=== PATIENT | male | born 1955 | race Caucasian/White ===

== ENCOUNTER 2023-09-18 15:15 | Emergency (ER) | payer MEDICARE, OTHER, SELFPAY ==
[2023-09-18 15:18] VITALS: BP 147/95
[2023-09-18 15:21] VITALS: BMI 32.3
[2023-09-18 15:44] LABS: % Basophils 0.3 % (0-2); % Eosinophils 2.1 % (0-6); % Immature Granulocytes 0.9 % (0-0.5); % Lymphocytes 18.6 % (20.5-51.1); % Neutrophils 66.1 % (42.2-75.2); Absolute Eosinophils 0.1 10^3/uL (0-0.7); Absolute Immature Granulocytes 0.1 10^3/uL (0-0.05); Absolute Lymphocytes 1.1 10^3/uL (1.2-3.4); Absolute Monocytes 0.7 10^3/uL (0.1-0.6); Absolute Neutrophils 3.8 10^3/uL (1.4-6.5); Hematocrit 50.1 % (39.0-52.0); Hemoglobin 16.7 g/dL (13.0-18.0); Mean Corp Hgb Conc. 33.3 g/dL (33.0-37.0); Mean Corpuscular Hgb 29.6 pg (27.0-31.0); Mean Corpuscular Volume 88.8 fL (80.0-94.0); Mean Platelet Volume 9.7 fL (7.4-10.4); Nucleated Red Blood Cells % 0 % (-); Platelet Count 164 10^3/uL (130-400); Red Blood Cell Count 5.64 10^6/uL (4.70-6.10); Red Cell Dist. Width 14.2 % (11.5-14.5); White Blood Cell Count 5.7 10^3/uL (4.8-10.8)
[2023-09-18 15:49] LABS: ALT (SGPT) 29 U/L (0-50); AST (SGOT) 29 U/L (17-59); Albumin 4.4 g/dl (3.5-5.0); Alkaline Phosphatase 60 U/L (38-126); Blood Urea Nitrogen 13 mg/dl (9-20); Carbon Dioxide 28 mmol/L (22-30); Chloride 102 mmol/L (98-107); Estimated Creatinine Clearance 94 ml/min; Glucose 119 mg/dl (70-99); Total Bilirubin 0.8 mg/dl (0.2-1.3); Total Protein 7.3 g/dl (6.3-8.2); eGFR > 60.00
[2023-09-18 15:59] LABS: Potassium 4.3 mmol/L (3.5-5.1); Sodium 136 mmol/L (135-145)
[2023-09-18 16:00] LABS: Troponin I < 0.012 ng/ml
--- NOTE | 2023-09-18 16:51 | ED.GENMED ---
History of Present Illness
<Ashley Banks PA-C - Last Filed: 09/22/23 09:03>
General
Chief Complaint: Chest Pain
Source: patient
Exam Limitations: none
Time Seen by Provider: 09/18/23 16:51
Nursing documentation reviewed up to this point in time: agreed with
Travel History
Have you had any contact with someone who has COVID-19?: No
Do you have any symptoms of coronavirus? Fever > 100 degrees, chills, cough, shortness of breath, sore throat, loss of taste or smell, muscle aches, or headache?: No
History of Present Illness
History of Present Illness:
67-year-old male with past medical history of A-fib, GERD, IBS, ventricular tachycardia, presenting to the emergency department today with left-sided chest pain since 1 pm today. Patient states that he has had this pain for the last 2 years
intermittently. Patient states that this feels like his usual chest pains on the past, however patient states that these episodes in the past have usually lasted for a few minutes but this time the pain has not gone away. Follows with
David with [facility], he has been seen [facility] in the past. Patient has called Dr. Hernandez in the past for this pain, and he has not been concerned about it considering has not happened with exertion. Patient called his
cardiology office today, in light of his persistent pain, was advised to report to emergency department. Patient denies palpitations, shortness of breath, recent long distance travel, personal history of blood clots. Patient does note chronic pain
in his bilateral calfs. Patient denies any dizziness, lightheadedness, syncopal episodes. Patient states that he has had a coronary artery catheterization at [facility] in 2020, which was normal. Patient does have a follow-up appointment next
week with Dr. Hernandez.
Review of Systems
<Ashley Banks PA-C - Last Filed: 09/22/23 09:03>
Review of Systems
All Other Systems: ROS reviewed and negative except as documented in HPI and ROS
Phy Exam
<Ashley Banks PA-C - Last Filed: 09/22/23 09:03>
Physical Exam
Physical Exam:
Vitals: Vital signs are stable
General: Patient is well-appearing in no acute distress
Skin: warm and dry, no rashes or lesions
Head: atraumatic, normocephalic
Peripheral Vascular: Some tenderness to palpation in the calves bilaterally. No lower extremity edema, no erythema. 2+ dorsalis pedis and posterior tibial pulses bilaterally.
Cardiac: Regular rate and rhythm, no murmurs, rubs, gallops. No tenderness to palpation over the external chest wall.
Pulm: Normal respiratory effort, normal respiratory rate, no wheezes, rales, rhonchi heard on exam, breath sounds equal
Abdomen: No abdominal tenderness
Neuro: AAOx3, CN II-XII intact.
Scores
<Ashley Banks PA-C - Last Filed: 09/22/23 09:03>
Heart Score for Chest Pain Patients
STEMI patient?: No
History: Slightly or Non-Suspicious
ECG: Normal
Age: >/= 65 years
Risk Factors: >/= 3 Risk Factors or History of CAD
Troponin: </= Normal Limit
Heart Score for Chest Pain Patients: 4
Heart Score Risk: 20.3% MACE over next 6 weeks
Course
<Ashley Banks PA-C - Last Filed: 09/22/23 09:03>
Orders/Labs/Results
Orders:
Orders
09/18/23 15:16
EKG [Electrocardiogram (*1)] Urgent
Reason for Study: Chest Pain
EKG- Treatment ONCE
09/18/23 15:25
Complete Blood Count/With Diff Urgent
Comprehensive Metabolic Panel Urgent
Troponin I Urgent
09/18/23 18:41
Electrocardiogram (*1) Urgent
Reason for Study: Chest Pain
EKG- Treatment ONCE
CR Chest - 2 Views Urgent
Comment:
Reason For Exam: left sided chest pain
09/18/23 19:25
D-Dimer Urgent
Troponin I Urgent
09/18/23 20:08
CT Chest Pe Study Urgent
Comment:
Reason For Exam: cp
Abnormal Lab Results
09/18/23 09/18/23
15:25 19:25
Abs Immat Gran (auto) 0.1 H 10^3/uL
(0-0.05)
Absolute Lymphs (auto) 1.1 L 10^3/uL
(1.2-3.4)
Absolute Monos (auto) 0.7 H 10^3/uL
(0.1-0.6)
Immature Gran % 0.9 H %
(0-0.5)
Lymphocytes % 18.6 L %
(20.5-51.1)
Monocytes % 12.0 H %
(1.7-9.3)
D-Dimer 0.87 H ug/mlFEU
(0.00-0.50)
Glucose 119 H mg/dl
(70-99)
09/18/23 15:25
09/18/23 15:25
Vital Signs
Initial and Last Documented VS:
Initial Vital Signs
Temp Pulse Resp BP Pulse Ox
98.2 F 69 16 147/95 96
09/18/23 15:18 09/18/23 15:18 09/18/23 15:18 09/18/23 15:18 09/18/23 15:18
Last Documented Vital Signs
Temp Pulse Resp BP Pulse Ox
98.2 F 76 20 118/75 98
09/18/23 15:18 09/18/23 23:30 09/18/23 23:30 09/18/23 23:30 09/18/23 23:30
<Amanuel Barahona, DO - Last Filed: 09/18/23 23:16>
Orders/Labs/Results
Orders:
Orders
09/18/23 15:16
EKG [Electrocardiogram (*1)] Urgent
Reason for Study: Chest Pain
EKG- Treatment ONCE
09/18/23 15:25
Complete Blood Count/With Diff Urgent
Comprehensive Metabolic Panel Urgent
Troponin I Urgent
09/18/23 18:41
Electrocardiogram (*1) Urgent
Reason for Study: Chest Pain
EKG- Treatment ONCE
CR Chest - 2 Views Urgent
Comment:
Reason For Exam: left sided chest pain
09/18/23 19:25
D-Dimer Urgent
Troponin I Urgent
09/18/23 20:08
CT Chest Pe Study Urgent
Comment:
Reason For Exam: cp
Abnormal Lab Results
09/18/23 09/18/23
15:25 19:25
Abs Immat Gran (auto) 0.1 H 10^3/uL
(0-0.05)
Absolute Lymphs (auto) 1.1 L 10^3/uL
(1.2-3.4)
Absolute Monos (auto) 0.7 H 10^3/uL
(0.1-0.6)
Immature Gran % 0.9 H %
(0-0.5)
Lymphocytes % 18.6 L %
(20.5-51.1)
Monocytes % 12.0 H %
(1.7-9.3)
D-Dimer 0.87 H ug/mlFEU
(0.00-0.50)
Glucose 119 H mg/dl
(70-99)
09/18/23 15:25
09/18/23 15:25
Vital Signs
Initial and Last Documented VS:
Initial Vital Signs
Temp Pulse Resp BP Pulse Ox
98.2 F 69 16 147/95 96
09/18/23 15:18 09/18/23 15:18 09/18/23 15:18 09/18/23 15:18 09/18/23 15:18
Last Documented Vital Signs
Temp Pulse Resp BP Pulse Ox
98.2 F 76 20 118/75 98
09/18/23 15:18 09/18/23 23:30 09/18/23 23:30 09/18/23 23:30 09/18/23 23:30
<Ashley Banks PA-C - Last Filed: 09/22/23 09:03>
MDM/Problems Addressed
Differential Diagnosis Includes:
Differentials include ACS, PE, pneumonia, costochondritis, pulmonary contusion, musculoskeletal sprain/strain
MDM/Problems Addressed:
Chest pain
Chronic conditions affecting care: HTN, Arrhythmia (has hx of afib, no longer takes thinner) and Other (diverticulitis, GERD, IBS, sleep apnea)
Acute Exacerbation and/or Progression of Chronic Illness: HTN
<Ashley Banks PA-C - Last Filed: 09/22/23 09:03>
*Pulse Oximetry
Patient hypoxic: no
*Critical Care Note
Total Time (30-74mins, 75-104mins- exclusive of procedures): Not Applicable
Data Reviewed
Review of Other/Old Records Reveals: Records (Reviewed history and physical from 09/25/2022, reviewed H&P from 04/16/2022) and Discharge Summary (Discharge summaries in [facility] to review.)
Source: patient and records
Prescriptions/Medications Considered But Not Given:
Consider medication for pain control, however patient states he is comfortable at this time
<DO Michelle Mccann Last Filed: 09/18/23 23:16>
*EKG
Interpreted by ED Provider?: Yes
Rate: normal
Rhythm: sinus
[place]: left axis deviation
QRS Pattern: normal QRS
Ischemia: no ischemia
*Stereo Plotter Operator Interpretation
Rate: normal
Interpretation: normal
Rhythm: sinus
<Ashley Banks PA-C - Last Filed: 09/22/23 09:03>
Patient Management
Escalation/DeEscalation of care consider admission/obs:
67-year-old male with past medical history of A-fib, GERD, IBS, ventricular tachycardia, presenting to the emergency department today with left-sided chest pain since 1 pm today. Patient states that he has had this pain for the last 2 years
intermittently. Patient states that this feels like his usual chest pains on the past, however patient states that these episodes in the past have usually lasted for a few minutes but this time the pain has not gone away. Emergency Department, his
EKG demonstrates normal sinus rhythm with no ischemic changes. His CBC and CMP unremarkable, initial troponin and 3-hour troponin repeat negative. Repeat EKG remains in normal sinus. Patient D-dimer is elevated, will proceed with CT scan.
ED Attending Note
<DAMION Calzada Last Filed: 09/22/23 09:03>
-
Portions of this chart may have been created with voice recognition software.� Occasional wrong word or��sound alike� substitutions may have occurred due to the inherent limitations of voice recognition software.
<DO Michelle Mccann Last Filed: 09/18/23 23:16>
ED Attending Note
Patient seen and examined by attending physician: Yes
I performed the substantive portion of visit, reviewed & personally made and approve the management plan that is documented in note by myself or MEÑO.: Yes
ED Attending Note:
Agree with note above. 67-year-old male with a history of tachyarrhythmias who presents with atypical left chest pain that has been ongoing for some time. He has spoken to his animal anatomist about it. He reportedly had a normal cardiac
catheterization about 3 years ago. EKG unchanged. Repeat troponin negative. Low index of suspicion for any ischemia given previous cath and normal troponins. Family history of clots and patient was concerned. D-dimer positive but CT negative.
Okay for discharge and outpatient cardiology follow-up
Discharge Plan
Departure
Patient Disposition: Home (Routine Discharge)
Date of Disposition: 09/18/23
Time of Disposition: 23:09
Patient with high blood pressure during this ER visit?: No
Discharge Problem:
ayptical chest pain
Instructions: Chest Pain DCA Follow Up
Prescriptions:
No Action
methotrexate sodium 2.5 MG tablet
7.5 mg PO .BID ON FRIDAY
tamsulosin 0.4 MG capsule
0.4 mg PO QPM
dextroamphetamine-amphetamine [Adderall XR] 20 MG capsule,extended release 24hr
20 mg PO DAILY
ropinirole 0.5 MG tablet
1.5 mg PO QPM
metoprolol tartrate 50 MG tablet
50 mg PO BID
gabapentin 300 MG capsule
300 mg PO Q6PM
folic acid 1 MG tablet
1 mg PO QPM
finasteride 5 MG tablet
5 mg PO DAILY
tadalafil [Cialis] 5 MG tablet
5 mg PO QPM
tadalafil [Cialis] 20 MG tablet
20 mg PO PRN PRN (Reason: ED)
omeprazole-sodium bicarbonate [Zegerid] 1 EACH capsule
1 cap PO BID
Iron 1 TAB Tab
1 tab PO DAILY
dextroamphetamine-amphetamine 10 MG tablet
10 mg PO DAILY@1400
Xarelto 20 MG tablet
20 mg PO QPM Qty: 0 0RF
Patient Comments:
Pt normally takes in eveing but took in AM yesterday for today's procedure
Rx Instructions:
Take your dose at 6pm tonight
melatonin 3 mg Tablet
3 mg PO HS
gabapentin 300 mg Capsule
300 mg PO HS
duloxetine 60 mg Capsule,Delayed Release(Dr/Ec)
60 mg PO DAILY
Referrals:
Russell Martel, [Family Provider] -
Activity Restrictions/Additional Instructions:
Please see your doctor or animal anatomist in the next 3 to 5 days for follow-up and reevaluation. Return immediately for worsening symptoms, shortness of breath, fevers or any other concerns.
Interventions
Interventions:
*Risk Screen - Suicide Last Done: 09/18/23 15:18
*General Assessment Last Done: 09/18/23 19:05
*Neglect/Abuse Screening Last Done: 09/18/23 15:18
ED- Fall Risk Assessment Last Done: 09/18/23 19:05
*ED COVID-19 Vaccine History Last Done: 09/18/23 15:18
*Nursing Disposition Last Done: 09/18/23 23:30
ED- Cardiac Assessment Last Done: 09/18/23 19:05
Discharge Date and Time
Discharge Date/Time: 09/18/23 23:30
[2023-09-18 19:05] VITALS: BP 123/46
[2023-09-18 19:57] LABS: D-Dimer 0.87 ug/mlFEU (0.00-0.50)
[2023-09-18 20:11] LABS: Troponin I < 0.012 ng/ml
[2023-09-18 20:45] VITALS: BP 116/79
[2023-09-18 21:58] VITALS: BP 118/75
[2023-09-18 23:30] VITALS: BP 118/75
== END 2023-09-18 23:30 | disposition home or self-care (01) ==
LOC: EMR 15:15
PROVIDERS: Emergency Medicine; Physician Assistant; EMERGENCY PHYSICIAN Emergency Medicine; FAMILY PHYSICIAN Family Medicine
DX: R07.89 Other chest pain (principal); I48.91 Unspecified atrial fibrillation; K21.9 Gastro-esophageal reflux disease without esophagitis
CPT/HCPCS: 99285; 71046; 71275; 80053; 84484; 85025; 85379; 93005; Q9967

== ENCOUNTER → 2023-10-09 11:01 | Outpatient (REF) | payer MEDICARE, OTHER, SELFPAY | LOC: DHCBC/DCA 11:01 | PROVIDERS: ATTENDING PHYSICIAN Internal Medicine Cardiovascular Disease; FAMILY PHYSICIAN Family Medicine | DX: I48.91 Unspecified atrial fibrillation (principal); R94.31 Abnormal electrocardiogram [ECG] [EKG] | CPT/HCPCS: 78452; 93017; A9500; J2785 ==

== ENCOUNTER → 2024-02-16 13:45 | Outpatient (REF) | payer MEDICARE, OTHER, SELFPAY | LOC: MRI 13:45 | PROVIDERS: ATTENDING PHYSICIAN Internal Medicine Rheumatology; FAMILY PHYSICIAN Family Medicine | DX: M17.0 Bilateral primary osteoarthritis of knee (principal); M45.0 Ankylosing spondylitis of multiple sites in spine; M54.2 Cervicalgia | CPT/HCPCS: 72141; 73221 ==

== ENCOUNTER 2024-03-02 01:30 | Inpatient (IN) | payer MEDICARE, OTHER, SELFPAY ==
[2024-03-01 22:58] VITALS: BP 116/88; BMI 35.0
[2024-03-01 23:00] VITALS: BP 129/83
[2024-03-01 23:22] LABS: % Basophils 0.3 % (0-2); % Eosinophils 1.1 % (0-6); % Immature Granulocytes 1.1 % (0-0.5); % Lymphocytes 8.4 % (20.5-51.1); % Monocytes 9.4 % (1.7-9.3); % Neutrophils 79.7 % (42.2-75.2); Absolute Eosinophils 0.1 10^3/uL (0-0.7); Absolute Immature Granulocytes 0.1 10^3/uL (0-0.05); Absolute Lymphocytes 0.6 10^3/uL (1.2-3.4); Absolute Monocytes 0.7 10^3/uL (0.1-0.6); Hematocrit 44.3 % (39.0-52.0); Hemoglobin 14.8 g/dL (13.0-18.0); Mean Corp Hgb Conc. 33.4 g/dL (33.0-37.0); Mean Corpuscular Hgb 27.9 pg (27.0-31.0); Mean Corpuscular Volume 83.6 fL (80.0-94.0); Mean Platelet Volume 10.3 fL (7.4-10.4); Nucleated Red Blood Cells % 0 % (-); Platelet Count 112 10^3/uL (130-400); Red Cell Dist. Width 18.1 % (11.5-14.5); White Blood Cell Count 7.5 10^3/uL (4.8-10.8)
[2024-03-01 23:28] LABS: ALT (SGPT) 28 U/L (0-50); AST (SGOT) 28 U/L (17-59); Albumin 3.8 g/dl (3.5-5.0); Alkaline Phosphatase 42 U/L (38-126); Blood Urea Nitrogen 14 mg/dl (9-20); Calcium 8.7 mg/dl (8.4-10.2); Carbon Dioxide 23 mmol/L (22-30); Chloride 104 mmol/L (98-107); Estimated Creatinine Clearance 107 ml/min; Glucose 232 mg/dl (70-99); Potassium 4.3 mmol/L (3.5-5.1); Sodium 139 mmol/L (135-145); Total Bilirubin 0.5 mg/dl (0.2-1.3); Total Protein 6.3 g/dl (6.3-8.2); eGFR > 60.00
--- NOTE | 2024-03-01 23:30 | ED.GENMED ---
History of Present Illness
General
Chief Complaint: AICD Problem
Source: patient and spouse
Exam Limitations: none
Time Seen by Provider: 03/01/24 22:58
Nursing documentation reviewed up to this point in time: agreed with
History of Present Illness
History of Present Illness:
68-year-old male history of tachyarrhythmia status post ablation x [address] Hernandez also history of tachycardia after sex status post cardioversion at [facility] has an AICD
Had a vodka drink this evening currently having sexual activity, was sitting on the side of the bed grabbed his chest fell over, shocked x 2 EMS was called
He has a Greenext device by report denies any preceding chest pain or shortness of breath he did feel very tired does not usually get that type of aerobic activity
Past History
Past History
ED Past Medical History: Arrthythmia
ED Past Surgical History: Cardiac
Social History
Tobacco: Non-smoker
Alcohol: Occasional
Drug: None
Personal:
Living: with family
Review of Systems
Review of Systems
All Other Systems: Not applicable
Cardiac: Reports other (AICD shock); Denies chest pain
ABD/GI: Reports no symptoms
: Reports no symptoms
Phy Exam
Physical Exam
Physical Exam:
Physical Exam
General: no apparent distress, not acutely ill
Neck: No jaundice
Heart: s1/s2 regular rate and rhythm, no murmur. equal radial pulses.
Lungs: no acute respiratory distress. clear bilaterally
Abdomen: Nontender
Neuro: alert and oriented. no focal neurological deficits
Skin: no rash
Psychiatric: well kept. interactive and cooperative
Extremities: no edema.
Course
Orders/Labs/Results
Orders:
Orders
03/01/24 22:55
Electrocardiogram (*1) Urgent
Reason for Study: Other
Other Reason for Exam: def. went off
03/01/24 22:56
EKG- Treatment ONCE
03/01/24 23:03
CMP [Comprehensive Metabolic Panel] Urgent
Complete Blood Count/With Diff Urgent
Magnesium Urgent
Comment: ADD ON
03/01/24 23:30
Add On- LAB Urgent
Tests Added?: magnesium
03/01/24 23:33
Interrogate Pacemaker- Treatment ONCE
Abnormal Lab Results
03/01/24
23:03
RDW 18.1 H %
(11.5-14.5)
Plt Count 112 L 10^3/uL
(130-400)
Abs Immat Gran (auto) 0.1 H 10^3/uL
(0-0.05)
Absolute Lymphs (auto) 0.6 L 10^3/uL
(1.2-3.4)
Absolute Monos (auto) 0.7 H 10^3/uL
(0.1-0.6)
Immature Gran % 1.1 H %
(0-0.5)
Neutrophils % 79.7 H %
(42.2-75.2)
Lymphocytes % 8.4 L %
(20.5-51.1)
Monocytes % 9.4 H %
(1.7-9.3)
Glucose 232 H mg/dl
(70-99)
03/01/24 23:03
03/01/24 23:03
Vital Signs
Initial and Last Documented VS:
Initial Vital Signs
Pulse Resp BP Pulse Ox
99 18 116/88 93
03/01/24 22:58 03/01/24 22:58 03/01/24 22:58 03/01/24 22:58
Last Documented Vital Signs
Temp Pulse Resp BP Pulse Ox
97.9 F 89 19 136/77 93
03/01/24 23:15 03/02/24 00:00 03/02/24 00:00 03/02/24 00:00 03/02/24 00:00
MDM/Problems Addressed
Differential Diagnosis Includes:
Arrhythmia, AICD shock, VT VF
MDM/Problems Addressed:
Fall AICD shock
Chronic conditions affecting care: Arrhythmia
Acute Exacerbation and/or Progression of Chronic Illness: Arrhythmia
*Pulse Oximetry
Patient hypoxic: no
*EKG
Interpreted by ED Provider?: Yes
Interpretation: abnormal
Comparison EKG: no comparison EKG present
Heart Rate: 78
Rate: normal
Ischemia: non-specific ST changes
*Water And Gas Helper Interpretation
Rate: normal
Interpretation: normal
Heart Rate: 78
*Critical Care Note
Total Time (30-74mins, 75-104mins- exclusive of procedures): Not Applicable
Update Note
Update Note:
Update interrogation reviewed 2 shocks for VF
ED Attending Note
-
Portions of this chart may have been created with voice recognition software.� Occasional wrong word or��sound alike� substitutions may have occurred due to the inherent limitations of voice recognition software.
Discharge Plan
Departure
Patient Disposition: Admit
Date of Disposition: 03/02/24
Time of Disposition: 00:09
Admit to: IVU
Presentation/result/management discussed w/ accepting MD/DO: Hospitalist
Patient with high blood pressure during this ER visit?: No
Condition: Fair
Discharge Problem:
AICD shock
Prescriptions:
No Action
methotrexate sodium 2.5 MG tablet
7.5 mg PO .BID ON FRIDAY
tamsulosin 0.4 MG capsule
0.4 mg PO QPM
dextroamphetamine-amphetamine [Adderall XR] 20 MG capsule,extended release 24hr
20 mg PO DAILY
ropinirole 0.5 MG tablet
1.5 mg PO QPM
metoprolol tartrate 50 MG tablet
50 mg PO BID
gabapentin 300 MG capsule
300 mg PO Q6PM
folic acid 1 MG tablet
1 mg PO QPM
finasteride 5 MG tablet
5 mg PO DAILY
tadalafil [Cialis] 5 MG tablet
5 mg PO QPM
tadalafil [Cialis] 20 MG tablet
20 mg PO PRN PRN (Reason: ED)
omeprazole-sodium bicarbonate [Zegerid] 1 EACH capsule
1 cap PO BID
Iron 1 TAB Tab
1 tab PO DAILY
dextroamphetamine-amphetamine 10 MG tablet
10 mg PO DAILY@1400
Xarelto 20 MG tablet
20 mg PO QPM Qty: 0 0RF
Patient Comments:
Pt normally takes in eveing but took in AM yesterday for today's procedure
Rx Instructions:
Take your dose at 6pm tonight
melatonin 3 mg Tablet
3 mg PO HS
gabapentin 300 mg Capsule
300 mg PO HS
duloxetine 60 mg Capsule,Delayed Release(Dr/Ec)
60 mg PO DAILY
Referrals:
Russell Martel DO [Family Provider] -
Interventions
Interventions:
*Risk Screen - Suicide Last Done: 03/01/24 22:58
*General Assessment Last Done: 03/01/24 22:58
*Neglect/Abuse Screening Last Done: 03/01/24 22:58
ED- Fall Risk Assessment Last Done: 03/01/24 23:03
ED- Cardiac Assessment Last Done: 03/01/24 23:03
Discharge Date and Time
Print Language: SERBIAN
[2024-03-02] VITALS (24 sets, daily range): BP systolic 102–141; BP diastolic 67–109; PULSE 81–87; BMI 34.4
--- NOTE | 2024-03-02 00:04 | EDRN ---
Sleeping with at bedside, call braun in reach, will continue to monitor
[2024-03-02] MEDS: TYLENOL 650 MG PO (00:27)
--- NOTE | 2024-03-02 01:00 | HPS.HSE ---
Family Physician
-
Family Physician: Russell Martel
Chief Complaint
-
Status post AICD defibrillation
History of Present Illness
This is a 68-year-old male with past medical history that significant for atrial fibrillation, V. tach status post AICD, history of PVI ablation, CAD and coronary vessels, NATALIE on CPAP, hypertension and obesity presenting to the emergency department
after experiencing 2 shocks from his AICD.
Patient reports generally being in usual state of health. He was medically dosed prior to come to the ED when he had experienced shock. Therefore show he did not feel but he was not over to the floor. He felt a second shock thereafter. Prior to
the shock during mucoid told the patient felt palpitations and also felt mild amount of chest pain and thereafter he experienced shock. The patient said the symptoms of palpitations and any chest pain resolves immediately after the shock. He
reports moderate activity recently but denies any exertional dyspnea, exertional angina, orthopnea or PND. He denies any lower extremity swelling. Denies recent episodes of palpitations lightheadedness or dizziness. His last pulmonary cath was 3
years ago and did not require intervention at that time.
On arrival in the emergency department he was afebrile, hemodynamically stable and in no acute distress. ECG shows normal sinus rhythm at a rate of [address] or T wave changes. Chemistries were within normal limits. CBC was also
within normal limits.
Medical History
Past Medical History
Past Medical History: Reports HTN and MO
Additional Past Medical History:
paroxysmal atrial fibrillation
VT s/p ablation
S/P AICD
NATALIE on CPAP
Past Surgical History: Reports None
Social History
Tobacco: Non-smoker
Alcohol: None
Drug: None
Personal:
Living: With Family
Employment: Employed
Family History
Family History: Not pertinent
Allergies / Home Medications
Allergies reflects when Allergies were last updated in [employer].
Home Medications with original date entered in [employer]
Allergy/Medication List:
Allergies
Allergy/AdvReac Type Severity Reaction Status Date / Time
shrimp Allergy Unknown facial Verified 03/01/24 23:02
swelling
clindamycin Allergy Facial Verified 03/01/24 23:02
Swelling
dog dander Allergy runny nose Verified 03/01/24 23:02
modafinil [From Provigil] Allergy Pharmacy Verified 03/01/24 23:02
to Review
Home Medications
dextroamphetamine-amphetamine ER 20 mg 24hr capsule,extend release (Adderall XR) 20 mg PO DAILY 12/03/21
gabapentin 300 mg capsule 300 mg PO BID 12/03/21
metoprolol tartrate 50 mg tablet 50 mg PO BID 12/03/21
omeprazole 40 mg-sodium bicarbonate 1.1 gram capsule (Zegerid) 1 cap PO BID 12/03/21
ropinirole 0.5 mg tablet 2 mg PO QPM 12/03/21
tadalafil 20 mg tablet (Cialis) 20 mg PO PRN PRN ED 12/03/21
tadalafil 5 mg tablet (Cialis) 5 mg PO QPM 12/03/21
tamsulosin 0.4 mg capsule 0.4 mg PO QPM 12/03/21
dextroamphetamine-amphetamine 10 mg tablet 20 mg PO DAILY@1400 12/11/21
melatonin 3 mg tablet 5 mg PO HS 04/11/22
aspirin 81 mg tablet,delayed release (Pauly Low Dose Aspirin) 81 mg PO DAILY 03/02/24
bupropion HCl 150 mg tablet,12 hr sustained-release (Wellbutrin SR) 150 mg PO DAILY 03/02/24
prednisone 5 mg tablet 5 mg PO DAILY 03/02/24
sertraline 100 mg tablet (Zoloft) 100 mg PO DAILY 03/02/24
sulfasalazine 500 mg tablet 1 g PO BID 03/02/24
Review of Systems
-
History Source: Patient
Constitutional: Reports No Symptoms
EENT: Reports No Symptoms
Respiratory: Reports No Symptoms
Cardiac: Reports Chest Pain and Palpitations
Abdomen/GI: Reports No Symptoms
: Reports No Symptoms
Musculoskeletal: Reports No Symptoms
Skin: Reports No Symptoms
Neurological: Reports No Symptoms
Endocrine: Reports No Symptoms
Hematologic/Lymphatic: Reports No Symptoms
Psych: Reports No Symptoms
Physical Exam
Vital Signs
Vital Signs
Temp Pulse Resp BP Pulse Ox
97.9 F 89 19 136/77 94
03/01/24 23:15 03/02/24 00:00 03/02/24 00:00 03/02/24 00:00 03/02/24 00:22
Physical Exam
General: Well Developed, Well Nourished, No Apparent Distress and Comfortable
HEENT: NormoCephalic, Anicteric, Moist mucous membranes and Atraumatic
Respiratory: Clear
Cardiac: S1/S2 and Regular Rhythm
Breast: Deferred by me
GI: Soft, Non Tender, Non Distended and Normal Bowel Sounds
Rectal: Deferred by Provider
Genito-urinary: Deferred by me
Musculoskeletal: No Clubbing, No Cyanosis and No Edema
Skin: Warm and Dry
Neuro: AO x 3
Hematologic/Lymphatic: No Lymphadenopathy
Psych: Calm
Laboratory Results
-
03/01/24 23:03
03/01/24 23:03
Laboratory Results
Total Bilirubin 0.5 mg/dl (0.2-1.3) 03/01/24 23:03
AST 28 U/L (17-59) 03/01/24 23:03
ALT 28 U/L (0-50) 03/01/24 23:03
Alkaline Phosphatase 42 U/L (38-126) 03/01/24 23:03
Data Reviewed
-
Medical Tests (Nuc Med, Echo, EKG etc): Image Personally Visualized and interpreted and Report Reviewed by me
Lab Data: Labs Reviewed by me
Old Records: Reviewed
Impression/Plan
-
IMPRESSION:
Patient with history of atrial fibrillation, V. tach status post defibrillation in the past, now status post ablation and AICD, CAD status post MO, hypertension, obesity, NATALIE on CPAP presenting to the emergency department status post AICD firing.
PLAN:
1. AICD Firing - Patient experienced 2 shocks. This was AICD firing up. Interrogation of device showed defibrillation starting 2.5 seconds after sensing V-fib and a second defibrillator 1 second liter. This terminated the V-fib. Prior to
experiencing the shock patient noted palpitations and mild chest pain which are now completely resolved. Current ECG showed normal sinus rhythm. His labs were unremarkable. Troponin will have been uninformative at this time. He is chest
pain-free and in no acute distress. Has history of V. tach in the past requiring defibrillation. Denies recent symptoms of angina. However the question is whether he had ischemia in the setting of coital activity resulting in the episode of
ventricular arrhythmia.
- admit to telemetry
- hold off on troponin for now
- check echo in am
- further ischemic testing per cardiology
- continue aspirin daily
- continue metoprolol.
2. AFIB - paroxysmal afib. No afib on ECG or telemetry. Not anticoagulated.
- continue rate control with metoprolol
3. NATALIE -
- CPAP HS
Patient with unspecified inflammatory arthritis on prednisone and sulfasalzine.
Continuing sertraline and Adderall
DVT PPX - lovenox SQ
Code status - Full code
--- NOTE | 2024-03-02 01:43 | EDRN ---
Patient ambulatory to the bathroom and back in bed resting comfortably
--- NOTE | 2024-03-02 03:44 | PTCARENOTE ---
Received pt from ED RN. Pt walked from the stretcher to our bed. Pt is AAOx3. NSR on the monitor. Received pt on 2L NC, RT placed pt on CPAP, lungs clear. BRPx1. CHG bath provided. Pt is laying in bed with call braun in reach.
[2024-03-02 04:43] LABS: Hepatitis C Antibody Negative (Negative)
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
--- NOTE | 2024-03-02 08:13 | W.PN.HOSP.TC ---
Today's Communication/Plan
-
NPO for ischemic eval
appreciate cardiology
Assessment / Plan
Assessment / Plan
IMPRESSION:
Patient with history of atrial fibrillation, V. tach status post defibrillation in the past, now status post ablation and AICD, CAD status post UT, hypertension, obesity, NATALIE on CPAP presenting to the emergency department status post AICD firing.
PLAN:
1. AICD Firing - Patient experienced 2 shocks. This was AICD firing up. Interrogation of device showed defibrillation starting 2.5 seconds after sensing V-fib and a second defibrillator 1 second liter. This terminated the V-fib. Prior to
experiencing the shock patient noted palpitations and mild chest pain which are now completely resolved. Current ECG showed normal sinus rhythm. His labs were unremarkable. He is chest pain-free and in no acute distress. Has history of V. tach
in the past requiring defibrillation. Denies recent symptoms of angina. However the question is whether he had ischemia in the setting of coital activity resulting in the episode of ventricular arrhythmia.
- admit to telemetry
- check echo in am
- further ischemic testing per cardiology, made NPO for possible cath
- continue aspirin daily
- continue metoprolol.
2. AFIB - paroxysmal afib. No afib on ECG or telemetry. Not anticoagulated.
- continue rate control with metoprolol
3. NATALIE -
- CPAP HS
Patient with unspecified inflammatory arthritis on prednisone and sulfasalzine.
Continuing sertraline and Adderall
DVT PPX - lovenox SQ
Code status - Full code
Anticipated Discharge: 24 - 48 hours
Subjective/Interval History
-
Date of Service: March 02, 2024
no chest pain or arrhythmia overnight
Objective Data
-
Labs:
Laboratory Results
03/01/24
23:03
WBC 7.5
Hgb 14.8
Hct 44.3
Plt Count 112 L
Sodium 139
Potassium 4.3
Chloride 104
Carbon Dioxide 23
BUN 14
Creatinine 0.8
Glucose 232 H
Calcium 8.7
Total Bilirubin 0.5
AST 28
ALT 28
Alkaline Phosphatase 42
Vital Signs:
Vital Signs
Temp Pulse Resp BP Pulse Ox
97.9 F 71 15 125/75 94
03/01/24 23:15 03/02/24 06:00 03/02/24 06:00 03/02/24 06:00 03/02/24 06:00
I&O
03/01/24 03/02/24 03/03/24
06:59 06:59 06:59
Intake Total 410 / 410
Balance 410 / 410
Review of Systems
-
History Source: Patient
All other systems: Reviewed and negative
Physical Exam
-
General: No Apparent Distress
HEENT: PERRLA
Respiratory: Clear to Auscultation; Negative Wheezes
Cardiac: Regular Rhythm and S1/S2
GI: Soft and Nontender
Musculoskeletal: No Edema
Skin: Warm and Dry; Negative Rash
Neuro: AO x 3
Psych: Calm
Data Reviewed
-
Diagnostic Radiology: Report Reviewed by me
Labs: Labs Reviewed by me
--- NOTE | 2024-03-02 09:30 | PTCARENOTE ---
Plan discussed with multiple members of care team, pt will go for cardiac cath this am. Report given to Michael in labor arbitrator hearing office. Per original orders, pt is for IVU, call placed to unit to confirm, bellows charger assembler will review staffing and assign bed. Pt updated,
anxious...emotional support provided, meds given- see AUG.
[2024-03-02] MEDS: NEURONTIN 300 MG PO ×2 (09:44→19:49)
[2024-03-02] MEDS: AZULFIDINE 1000 MG PO ×2 (09:44→19:49)
[2024-03-02] MEDS: DELTASONE 5 MG PO (09:44)
[2024-03-02] MEDS: ASPIR LOW (ENTERIC COATED) 81 MG PO (09:44)
[2024-03-02] MEDS: WELLBUTRIN SR (12 hour sustained release) 150 MG PO (09:44)
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
[2024-03-02] MEDS: ZOLOFT 100 MG PO (09:45)
[2024-03-02] MEDS: LOPRESSOR 50 MG PO (09:45)
[2024-03-02 10:47] LABS: Troponin I 0.147 ng/ml
--- NOTE | 2024-03-02 11:06 | PTCARENOTE ---
Received the patient from the quality assurance/r&d lab technician in his bed. The patient is aaox3, vss, 94% on RA, NSR obn the monitor. He has no complaints of pain or discomfort. His right R-band is in place. I instructed him on his activity restrictions. His call braun is
within reach.
[2024-03-02] MEDS: NSS 1000 IV (11:54)
--- NOTE | 2024-03-02 14:38 | W.PN.UPDATE ---
Update Note
Progress Note Update
pt had 24 beat run NSVT on telemetry, was asymptomatic.
Cardiac catheterization today showed luminal irregularities. Elevated troponin this a.m. of 0.147, likely due to non-ischemic myocardial injury.
Metoprolol tartrate was increased to 75 mg BID earlier today.
We are arranging for inpatient cardiac MRI and awaiting echo ordered for today.
In further discussion with patient today, last week he had been prescribed fluconazole 100 mg daily as well as nystatin swish and spit for thrush. Took fluconazole on 02/23, 02/24, 02/25, and 03/01.
Also, patient reports being on daily Cialis 5 mg and tamsulosin for issues since his treatment for anal cancer. In addition, he uses PRN Viagra and Cialis for erectile dysfunction. He had used Viagra on 02/27, Cialis on 02/28, and Viagra on 03/01.
Case was reviewed and discussed with Dr Clinton Hernandez, pt's EP. Plan to start Dofetilide tomorrow for management of ventricular arrhythmias. Starting tomorrow due to recent use of Fluconazole. Pt was previously on Dofetilide 250 mcg bid for
atrial fibrillation. Was stopped after a PVI for afib in 12/19. At that time, it was unclear why he was on the lower dose of Dofetilide as it had been started during care at [facility]. We plan to start Dofetilide 250 mcg bid in the morning.
--- NOTE | 2024-03-02 14:50 | CM ---
Chart reviewed. Patient is independent of ADLS, lives with his in a [address], 5 [address], O DME. Plan is for the patient to return home. CM to follow
--- NOTE | 2024-03-02 15:18 | PTCARENOTE ---
Monitor showing a 24 beat run of VT. The patient is sitting up in bed. He is asymptomatic. TEST FIXTURE DESIGNER's notified.
[2024-03-02] MEDS: PROTONIX 40 MG PO ×2 (16:00→22:08)
[2024-03-02] MEDS: ADDERALL PO (17:18)
[2024-03-02] MEDS: REQUIP 2 MG PO (17:54)
[2024-03-02] MEDS: FLOMAX 0.4 MG PO (17:54)
[2024-03-02] MEDS: LOVENOX 40 MG SC (17:54)
[2024-03-02] MEDS: LOPRESSOR 75 MG PO (19:50)
[2024-03-02] MEDS: MELATONIN 5 MG PO (22:08)
[2024-03-03] VITALS (8 sets, daily range): BP systolic 118–135; BP diastolic 72–102; PULSE 80; BMI 33.8
[2024-03-03 04:57] LABS: Hematocrit 46.1 % (39.0-52.0); Mean Corp Hgb Conc. 32.5 g/dL (33.0-37.0); Mean Corpuscular Hgb 27.6 pg (27.0-31.0); Mean Corpuscular Volume 84.7 fL (80.0-94.0); Mean Platelet Volume 9.9 fL (7.4-10.4); Platelet Count 114 10^3/uL (130-400); Red Blood Cell Count 5.44 10^6/uL (4.70-6.10); Red Cell Dist. Width 18.6 % (11.5-14.5); White Blood Cell Count 6.9 10^3/uL (4.8-10.8)
[2024-03-03 05:20] LABS: Blood Urea Nitrogen 12 mg/dl (9-20); Calcium 8.8 mg/dl (8.4-10.2); Carbon Dioxide 28 mmol/L (22-30); Chloride 105 mmol/L (98-107); Estimated Creatinine Clearance 93 ml/min; Glucose 98 mg/dl (70-99); Magnesium 2.2 mg/dl (1.6-2.3); Potassium 4.5 mmol/L (3.5-5.1); Sodium 138 mmol/L (135-145); eGFR > 60.00
--- NOTE | 2024-03-03 05:57 | PTCARENOTE ---
Tele remains SR w/ occasional PVCs, and Apaced. HR in the 60-70s. Denies any pain or discomfort. Ambulates self in room. Can make needs known, call braun within reach
--- NOTE | 2024-03-03 07:37 | W.PN.CARDCBS ---
Addendum entered and electronically signed by Scar Keyes MD 03/03/24 09:57:
I saw and examined the patient.
The Sap Architect's note was reviewed and I agree with the note.
Comment:
GEN: No distress, awake, Ox3
HEENT: supple, anicteric, mmm
LUNGS: CTA, no wheezes/rales
CV: Reg, S1/S2, 1/6 syst LSB, no gallop
ABD: soft, BS+, NT/ND
EXT: No edema
NEURO: Gross non-focal
SKIN: No rash
Plan:
Overall doing well. No further significant VTE. Continue Tikosyn 250 mcg twice daily
Cardiac MRI today. Cardiac cath with nonobstructive CAD.
Continue metoprolol.
If has further VT would consider ablation.
Addendum entered and electronically signed by Argelia Fernandez PA-C 03/03/24 08:53:
patient on requip 2mg QPM for restless leg syndrome. patient inquired with nursing about dose now so he can complete MRI. consider one time dose now
Original Note:
Today's Communication / Plan
-
for cardiac MRI today
tikosyn 250mcg Q12H
Impression / Plan
-
PCP:
Primary hazardous waste material technician: Clinton Hernandez MD
Impression:
Ventricular tachycardia status post ICD shock x 2
Atrial fibrillation status post ablation 12/19 (dofetilide discontinued at this time)
Atrial tachycardia status post EP study 04/20
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
VT 10/18- seen at [facility] and had CV
DC ICD ([employer]) 10/02/20
Myocardial infarction 10/18
Nonobstructive coronary artery disease
Vasovagal syncope
Sleep apnea
GERD
Diverticular disease
Anal cancer status post chemo and radiation
Bilateral shoulder surgery 2009
Cardiac contusion approximately 30 years ago
Cardiac catheterization on 09/29/2020 ([facility]) showed nonobstructive coronary artery disease and an ejection fraction of 40 to 45%.
Echocardiogram on 09/29/2020 ([facility]) showed an EF of 55% with no wall motion abnormalities.
Lexiscan Cardiolite stress test on 10/09/23 showing a fixed defects in the basal inferolateral, basal inferior, mid inferior lateral, and mid inferior segment of the apex consistent with soft tissue attenuation which improved with prone imaging. EF
was 57%.
ECHO 03/02/24: EF 55 to 60%, mild concentric LVH, stage II diastolic dysfunction, mild MAC, trace MR, mild TR, PAP 33 mmHg
Plan:
-Presented with VT/VF status post shock x 2, which occurred in the setting of physical exertion (sexual intercourse). He has history of VT resulting in ICD placement in 2020. No prior shocks.
-Cardiac catheterization 03/02 with nonobstructive coronary disease. trop 0.147, nonischemic myocardial injury likely due to shocks
-Echo with results as above, EF preserved
-for cardiac MRI today
-will plan to start dofetilide today. had been on 250mcg Q12H in past for afib s/p PVI, will resume at this dose.
-no further VT noted overnight on review of tele. one brief vpaced episode.
-continue lopressor 75mg BID
-could consider for OP VT ablation
-d/w nursing. d/w hospitalist
Progress Note - Crime Scene Analyst
Subjective
Date of Service: March 03, 2024
no issues overnight. patient states he slept well
Objective
Labs:
03/03/24 04:38
03/03/24 04:38
Labs
Hgb 15.0 g/dL (13.0-18.0) 03/03/24 04:38
Hct 46.1 % (39.0-52.0) 03/03/24 04:38
Plt Count 114 10^3/uL (130-400) L 03/03/24 04:38
Sodium 138 mmol/L (135-145) 03/03/24 04:38
Potassium 4.5 mmol/L (3.5-5.1) 03/03/24 04:38
BUN 12 mg/dl (9-20) 03/03/24 04:38
Creatinine 0.9 mg/dL (0.7-1.3) 03/03/24 04:38
Glucose 98 mg/dl (70-99) 03/03/24 04:38
Troponins
03/02/24 03/02/24
10:01 10:09
Troponin I Cancelled 0.147 H*
Vital Signs and I&O:
Vital Signs
Temp Pulse Resp BP Pulse Ox
97.3 F 66 20 135/85 97
03/03/24 06:51 03/03/24 06:54 03/03/24 06:51 03/03/24 06:54 03/03/24 06:54
Vital Signs
Temp Pulse Resp BP Pulse Ox
97.3 F 66 20 135/85 97
03/03/24 06:51 03/03/24 06:54 03/03/24 06:51 03/03/24 06:54 03/03/24 06:54
Intake & Output
02/29/24 03/01/24 03/02/24 03/03/24
07:59 07:59 07:59 07:59
Intake Total 410 / 410 1314 / 1314
Balance 410 / 410 1314 / 1314
Physical Exam
Physical Exam
GEN: No distress, awake, alert, oriented x3
HEENT: supple, anicteric, mmm, eomi
LUNGS: CTA B/L, no wheezes/rales
CV: Reg, S1/S2, no murmur
ABD: soft, BS+, NT/ND
EXT: No cyanosis, clubbing, edema
NEURO: Gross non-focal
SKIN: Warm, pink, dry. No rash
[2024-03-03] MEDS: ASPIR LOW (ENTERIC COATED) 81 MG PO (07:49)
[2024-03-03] MEDS: WELLBUTRIN SR (12 hour sustained release) 150 MG PO (07:49)
[2024-03-03] MEDS: PROTONIX 40 MG PO (07:49)
[2024-03-03] MEDS: AZULFIDINE 1000 MG PO ×2 (07:50→19:40)
[2024-03-03] MEDS: LOPRESSOR 75 MG PO ×2 (07:50→19:40)
[2024-03-03] MEDS: NEURONTIN 300 MG PO ×2 (07:50→19:39)
[2024-03-03] MEDS: DELTASONE 5 MG PO (07:51)
[2024-03-03] MEDS: ZOLOFT 100 MG PO (07:51)
[2024-03-03] MEDS: FLUSH (NSS) 1 FLUSH IV (07:51)
--- NOTE | 2024-03-03 08:05 | W.PN.HOSP.TC ---
Today's Communication/Plan
-
see plan
Assessment / Plan
Assessment / Plan
IMPRESSION:
Patient with history of atrial fibrillation, V. tach status post defibrillation in the past, now status post ablation and AICD, CAD status post NM, hypertension, obesity, NATALIE on CPAP presenting to the emergency department status post AICD firing.
Cardiac Cath 03/02/24
CONCLUSIONS
1. No obstructive coronary artery disease.
2. 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
3. LVEDP is 15 mmHg
TTE 03/02/24
CONCLUSIONS
Normal left ventricular chamber size. Normal left ventricular systolic
function. Normal regional wall motion. Mild concentric left ventricular
hypertrophy. Left ventricular ejection fraction is 55-60% by volumetric
assessment. Stage II diastolic dysfunction suggestive of abnormal relaxation
and increased filling pressures.
Normal right ventricular size and function. ICD wire seen in right ventricle.
Mitral valve opens normally. Mild mitral annular calcification. Trace mitral
regurgitation.
Trileaflet aortic valve. The aortic valve is structurally and functionally
normal.
Tricuspid valve opens normally. Mild tricuspid regurgitation. Estimated
pulmonary artery pressure of 33 mmHg assuming a right atrial pressure of 3
mmHg.
PLAN:
1. AICD Firing
-Interrogation of device showed defibrillation starting 2.5 seconds after sensing V-fib and a second defibrillator 1 second liter. This terminated the V-fib.
-s/p cardiac cath on 03/02 without obstructive coronary disease
-TTE with preserved EF, mild LVH and diastolic dysfunction
-plan is for cardiac MRI today
-continue ESTATE PLANNER Metoprolol, dose increased
-plan is to start Dofetilide today
2. AFIB - paroxysmal afib. No afib on ECG or telemetry. Not anticoagulated.
- continue rate control with metoprolol
3. NATALIE -
- CPAP HS
Patient with unspecified inflammatory arthritis on prednisone and sulfasalzine.
Continuing sertraline and Adderall
DVT PPX - lovenox SQ
Code status - Full code
Anticipated Discharge: > 48 hours
Subjective/Interval History
-
Date of Service: March 03, 2024
feeling well
no chest pain or shortness of breath
Objective Data
-
Labs:
Laboratory Results
03/03/24
04:38
WBC 6.9
Hgb 15.0
Hct 46.1
Plt Count 114 L
Sodium 138
Potassium 4.5
Chloride 105
Carbon Dioxide 28
BUN 12
Creatinine 0.9
Glucose 98
Calcium 8.8
Vital Signs:
Vital Signs
Temp Pulse Resp BP Pulse Ox
97.3 F 66 20 135/85 97
03/03/24 06:51 03/03/24 06:54 03/03/24 06:51 03/03/24 06:54 03/03/24 06:54
I&O
03/02/24 03/03/24 03/04/24
06:59 06:59 06:59
Intake Total 410 / 410 1314 / 1314
Balance 410 / 410 1314 / 1314
Review of Systems
-
History Source: Patient
All other systems: Reviewed and negative
Physical Exam
-
General: No Apparent Distress
HEENT: PERRLA
Respiratory: Clear to Auscultation; Negative Wheezes
Cardiac: Regular Rhythm and S1/S2
GI: Soft and Nontender
Musculoskeletal: No Edema
Skin: Warm and Dry; Negative Rash
Neuro: AO x 3
Psych: Calm
Data Reviewed
-
Diagnostic Radiology: Report Reviewed by me
Labs: Labs Reviewed by me
--- NOTE | 2024-03-03 08:56 | W.CARD.TIKOS ---
Initiate Tikosyn
-
I verify that the patient has not taken any verapamil (Isoptin/Calan), ketoconazole (Nizoral), cimetidine (Tagamet), trimethoprim (Trimpex), trimethoprim/sulfamethoxazole (Bactrim), megesterol (Megace), prochlorperazine (Compazine),
hydrochlorothiazide (HCTZ), dolutegravir (Tivicay) or any Class I or Class III anti-arrhythmic within the last three days
AND
I verify that the patient has not taken amiodarone within the last THREE months, or that the patient's amiodarone plasma concentration is <0.3 mcg/mL.
Creatinine 0.9 mg/dL (0.7-1.3) 03/03/24 04:38
Estimated Creat Clear 93 ml/min 03/03/24 04:38
Does patient have a Ventricular Conduction Abnormality: No
I have assessed the baseline QTc interval (using QT for heart rate less than 60 bpm) and deemed the patient is appropriate for Dofetilide therapy. I understand that Tikosyn is contraindicated if the QTc is >440msec (500msec in patients with
ventricular conduction abnormalities).
Baseline QTc (in msec): 411
QTc interval is greater than 440msec without conduction abnormality OR greater than 500msec with a conduction abnormality, but acceptable to proceed per Cardiology attending.
Ordering Physician: Scar Keyes
[2024-03-03] MEDS: REQUIP 1 MG PO (09:15)
[2024-03-03] MEDS: ADDERALL 10 MG PO ×2 (10:10→15:42)
--- NOTE | 2024-03-03 11:41 | CM ---
CM following for DC planning needs.
Attempted to m/w patient at bedside but patient was not present. Will re-attempt at another time.
Reviewed initial assessment. Pt. resides w/ spouse in a private, 3 story home. He is functionally indep. at baseline w/ ADLs, mobility without the use of any assisted device.
Antic. DC plan is for home without needs.
Will cont. to follow.
[2024-03-03] MEDS: TIKOSYN 250 MCG PO ×2 (12:38→23:02)
--- NOTE | 2024-03-03 12:46 | PTCARENOTE ---
The patient is back from his cardiac MRI. NSR is noted on the monitor. Vital signs are stable. 1st Dose of Tikosyn given.
--- NOTE | 2024-03-03 15:13 | PTCARENOTE ---
1st dose Tikosyn's 2 hour post Qtc is 413
--- NOTE | 2024-03-03 16:39 | W.PN.UPDATE ---
Update Note
Progress Note Update
reviewed results of cardiac MRI with patient and daughter at bedside, no significant scar, some myocardial thickening of septal wall of mid to basal portion of left ventricle. continue tikosyn 250mcg Q12H. all questions answered to best of my
ability.
[2024-03-03] MEDS: REQUIP 2 MG PO (18:28)
[2024-03-03] MEDS: LOVENOX 40 MG SC (18:28)
[2024-03-03] MEDS: FLOMAX 0.4 MG PO (18:28)
[2024-03-03] MEDS: NON-FORMULARY ITEM 1 CAP PO (20:58)
[2024-03-03] MEDS: PRAVACHOL 20 MG PO (21:06)
[2024-03-03] MEDS: MELATONIN 5 MG PO (22:12)
[2024-03-04] VITALS (9 sets, daily range): BP systolic 118–142; BP diastolic 74–92; PULSE 80–85; BMI 33.4
--- NOTE | 2024-03-04 02:05 | PTCARENOTE ---
Pt received start of shift, HR SR w/ occasional PACs and PVCs. R radial cath site dressing CDI, soft, no hematoma. Tikosyn dose #2 administered, QTc 441. Educated pt on what QTc is and why we are monitoring it while on tikosyn. pt states
understanding. Pt denies any pain, sob, or lightheadedness/dizziness. Informed to notify RN if any changes, call braun within reach.
[2024-03-04 05:38] LABS: Blood Urea Nitrogen 15 mg/dl (9-20); Calcium 8.9 mg/dl (8.4-10.2); Carbon Dioxide 29 mmol/L (22-30); Chloride 100 mmol/L (98-107); Estimated Creatinine Clearance 83 ml/min; Glucose 108 mg/dl (70-99); Magnesium 2.1 mg/dl (1.6-2.3); Potassium 4.3 mmol/L (3.5-5.1); Sodium 138 mmol/L (135-145); eGFR > 60.00
--- NOTE | 2024-03-04 07:54 | W.PN.HOSP.TC ---
Today's Communication/Plan
-
see plan
Assessment / Plan
Assessment / Plan
IMPRESSION:
Patient with history of atrial fibrillation, V. tach status post defibrillation in the past, now status post ablation and AICD, CAD status post ID, hypertension, obesity, NATALIE on CPAP presenting to the emergency department status post AICD firing.
Cardiac Cath 03/02/24
CONCLUSIONS
1. No obstructive coronary artery disease.
2. 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
3. LVEDP is 15 mmHg
TTE 03/02/24
CONCLUSIONS
Normal left ventricular chamber size. Normal left ventricular systolic
function. Normal regional wall motion. Mild concentric left ventricular
hypertrophy. Left ventricular ejection fraction is 55-60% by volumetric
assessment. Stage II diastolic dysfunction suggestive of abnormal relaxation
and increased filling pressures.
Normal right ventricular size and function. ICD wire seen in right ventricle.
Mitral valve opens normally. Mild mitral annular calcification. Trace mitral
regurgitation.
Trileaflet aortic valve. The aortic valve is structurally and functionally
normal.
Tricuspid valve opens normally. Mild tricuspid regurgitation. Estimated
pulmonary artery pressure of 33 mmHg assuming a right atrial pressure of 3
mmHg.
Cardiac MRI 03/03/24
IMPRESSION: There is myocardial thickening mainly involving the septal wall of the mid to basal portion of the left ventricle.
There is no evidence for abnormal enhancement of the left ventricle, with no MR findings to suggest significant scarring. There are no MR findings to suggest a focal area of myocardial infarction.
Normal morphology and wall motion of the right ventricle.
Calculated left ventricular ejection fraction of 43%, which subjectively is likely an underestimation, with ejection fraction likely greater than 50%.
PLAN:
1. AICD Firing
-Interrogation of device showed defibrillation starting 2.5 seconds after sensing V-fib and a second defibrillator 1 second liter. This terminated the V-fib.
-s/p cardiac cath on 03/02 without obstructive coronary disease
-TTE with preserved EF, mild LVH and diastolic dysfunction
-s/p cardiac MRI - no finding to suggest significant scarring
-continue UPHOLSTERY SEWER Metoprolol, dose increased
-s/p initiation of Dofetilide 03/03
2. AFIB - paroxysmal afib. No afib on ECG or telemetry. Not anticoagulated.
- continue rate control with metoprolol
3. NATALIE -
- CPAP HS
Patient with unspecified inflammatory arthritis on prednisone and sulfasalzine.
Continuing sertraline and Adderall
DVT PPX - lovenox SQ
Code status - Full code
Anticipated Discharge: 24 - 48 hours
Subjective/Interval History
-
Date of Service: March 04, 2024
feeling well
Objective Data
-
Labs:
Laboratory Results
03/04/24
05:08
Sodium 138
Potassium 4.3
Chloride 100
Carbon Dioxide 29
BUN 15
Creatinine 1.0
Glucose 108 H
Calcium 8.9
Vital Signs:
Vital Signs
Temp Pulse Resp BP Pulse Ox
97.3 F 72 18 119/87 96
03/04/24 07:34 03/04/24 05:02 03/04/24 07:34 03/04/24 05:02 03/04/24 07:34
I&O
03/03/24 03/04/24 03/05/24
06:59 06:59 06:59
Intake Total 1314 / 1314 480 / 480 240 / 240
Balance 1314 / 1314 480 / 480 240 / 240
Review of Systems
-
History Source: Patient
All other systems: Reviewed and negative
Physical Exam
-
General: No Apparent Distress
HEENT: PERRLA
Respiratory: Clear to Auscultation; Negative Wheezes
Cardiac: Regular Rhythm and S1/S2
GI: Soft and Nontender
Musculoskeletal: No Edema
Skin: Warm and Dry; Negative Rash
Neuro: AO x 3
Psych: Calm
Data Reviewed
-
Diagnostic Radiology: Report Reviewed by me
Labs: Labs Reviewed by me
[2024-03-04] MEDS: ADDERALL 10 MG PO ×2 (09:09→15:03)
[2024-03-04] MEDS: ASPIR LOW (ENTERIC COATED) 81 MG PO (09:09)
[2024-03-04] MEDS: DELTASONE 5 MG PO (09:10)
[2024-03-04] MEDS: LOPRESSOR 75 MG PO ×2 (09:10→19:57)
[2024-03-04] MEDS: NEURONTIN 300 MG PO ×2 (09:16→19:58)
[2024-03-04] MEDS: AZULFIDINE 1000 MG PO ×2 (09:16→19:57)
[2024-03-04] MEDS: WELLBUTRIN SR (12 hour sustained release) 150 MG PO (09:17)
[2024-03-04] MEDS: ZOLOFT 100 MG PO (09:17)
[2024-03-04] MEDS: NON-FORMULARY ITEM 1 CAP PO ×2 (09:17→19:56)
[2024-03-04] MEDS: TIKOSYN 250 MCG PO ×2 (09:29→19:58)
--- NOTE | 2024-03-04 10:33 | W.PN.CARDCBS ---
Addendum entered and electronically signed by Scar Keyes MD 03/04/24 11:39:
I saw and examined the patient.
The Plant Tender's note was reviewed and I agree with the note.
Comment:
GEN: No distress, awake, Ox3
HEENT: supple, anicteric, mmm
LUNGS: CTA, no wheezes/rales
CV: Reg, S1/S2, 1/6 syst LSB, no gallop
ABD: soft, BS+, NT/ND
EXT: No edema
NEURO: Gross non-focal
SKIN: No rash
Plan:
MRI overall unremarkable with no clear scar based myopathy.
Will continue Tikosyn to 50 mcg every 12. QTc is stable.
Continue telemetry for another 24 hours. Hopeful for discharge in a.m.
Original Note:
Today's Communication / Plan
-
continue tikosyn. QTc stable
Impression / Plan
-
PCP:
Primary manager women: Clinton Hernandez MD
Impression:
Ventricular tachycardia/Ventricular fibrillation status post ICD shock x 2
Atrial fibrillation status post ablation 11/2021 (dofetilide discontinued at this time)
Atrial tachycardia status post EP study 03/2022
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
VT 09/2020- seen at [facility] and had CV
DC ICD ([employer]) 10/02/20
Myocardial infarction 09/2020
Nonobstructive coronary artery disease
Vasovagal syncope
Sleep apnea
GERD
Diverticular disease
Anal cancer status post chemo and radiation
Bilateral shoulder surgery 2009
Cardiac contusion approximately 30 years ago
Cardiac catheterization on 09/29/2020 ([facility]) showed nonobstructive coronary artery disease and an ejection fraction of 40 to 45%.
Echocardiogram on 09/29/2020 ([facility]) showed an EF of 55% with no wall motion abnormalities.
Lexiscan Cardiolite stress test on 10/09/23 showing a fixed defects in the basal inferolateral, basal inferior, mid inferior lateral, and mid inferior segment of the apex consistent with soft tissue attenuation which improved with prone imaging. EF
was 57%.
ECHO 03/02/24: EF 55 to 60%, mild concentric LVH, stage II diastolic dysfunction, mild MAC, trace MR, mild TR, PAP 33 mmHg
Plan:
-Presented with VT/VF status post shock x 2, which occurred in the setting of physical exertion (sexual intercourse). He has history of VT resulting in ICD placement in 2020. No prior shocks.
-Cardiac catheterization 03/02 with nonobstructive coronary disease. trop 0.147, nonischemic myocardial injury likely due to shocks
-Echo with results as above, EF preserved
-cardiac MRI 03/03 no significant scar, some myocardial thickening of septal wall of mid to basal portion of left ventricle, reviewed with patient 03/03
-continue tikosyn 250mcg Q12H. had been on 250mcg in past for afib s/p PVI. QTc stable thus far. 5th dose in AM
-no further VT noted overnight on review of tele. occasional PVCs/PACs
-continue lopressor 75mg BID
-could consider for OP VT ablation
-d/w nursing
Progress Note - Solder Sprayer
Subjective
Date of Service: March 04, 2024
no issues overnight
Objective
Labs:
03/03/24 04:38
03/04/24 05:08
Labs
Hgb 15.0 g/dL (13.0-18.0) 03/03/24 04:38
Hct 46.1 % (39.0-52.0) 03/03/24 04:38
Plt Count 114 10^3/uL (130-400) L 03/03/24 04:38
Sodium 138 mmol/L (135-145) 03/04/24 05:08
Potassium 4.3 mmol/L (3.5-5.1) 03/04/24 05:08
BUN 15 mg/dl (9-20) 03/04/24 05:08
Creatinine 1.0 mg/dL (0.7-1.3) 03/04/24 05:08
Glucose 108 mg/dl (70-99) H 03/04/24 05:08
Troponins
03/02/24 03/02/24
10:01 10:09
Troponin I Cancelled 0.147 H*
Vital Signs and I&O:
Vital Signs
Temp Pulse Resp BP Pulse Ox
97.3 F 73 18 118/88 96
03/04/24 07:34 03/04/24 09:10 03/04/24 07:34 03/04/24 09:10 03/04/24 07:34
Vital Signs
Temp Pulse Resp BP Pulse Ox
97.3 F 73 18 118/88 96
03/04/24 07:34 03/04/24 09:10 03/04/24 07:34 03/04/24 09:10 03/04/24 07:34
Intake & Output
03/02/24 03/03/24 03/04/24 03/05/24
07:59 07:59 07:59 07:59
Intake Total 410 / 410 1314 / 1314 720 / 720
Balance 410 / 410 1314 / 1314 720 / 720
--- NOTE | 2024-03-04 11:08 | PTCARENOTE ---
Patient received at shift change. SR on the monitor, HR in the 60s. Third dose of Tikosyn administered. No complaints from the pt at this time. Call braun within reach.
--- NOTE | 2024-03-04 14:21 | CM ---
CM following for DC planning needs.
Anticipated DC plan is for home, no needs.
Call to [facility], spoke w/ Pharmacist-no Tikosyn in stock but once Rx received, they can order for next day.
Pt. will need a 3d Rx upon DC. TT to [facility] to update.
Plan is home, no needs.
CM to follow.
[2024-03-04] MEDS: REQUIP 2 MG PO (17:42)
[2024-03-04] MEDS: LOVENOX 40 MG SC (17:42)
[2024-03-04] MEDS: FLOMAX 0.4 MG PO (17:42)
[2024-03-04] MEDS: MELATONIN 5 MG PO (21:58)
[2024-03-04] MEDS: PRAVACHOL 20 MG PO (21:58)
--- NOTE | 2024-03-05 04:30 | PTCARENOTE ---
Pt received start of shift, HR SR w/ PACs and PVCs. Tikosyn dose #4 administered - QTc 411.
[2024-03-05 04:34] VITALS: BP 120/75
[2024-03-05 06:30] VITALS: BMI 33.2
[2024-03-05 06:43] VITALS: BP 120/77
[2024-03-05] MEDS: DELTASONE 5 MG PO (08:05)
[2024-03-05] MEDS: TIKOSYN 250 MCG PO (08:05)
[2024-03-05] MEDS: AZULFIDINE 1000 MG PO (08:05)
[2024-03-05] MEDS: ASPIR LOW (ENTERIC COATED) 81 MG PO (08:05)
[2024-03-05] MEDS: ADDERALL 10 MG PO (08:06)
[2024-03-05] MEDS: LOPRESSOR 75 MG PO (08:06)
[2024-03-05] MEDS: WELLBUTRIN SR (12 hour sustained release) 150 MG PO (08:06)
[2024-03-05] MEDS: NEURONTIN 300 MG PO (08:06)
[2024-03-05] MEDS: NON-FORMULARY ITEM 1 CAP PO (08:07)
[2024-03-05] MEDS: ZOLOFT 100 MG PO (08:07)
--- NOTE | 2024-03-05 08:28 | W.PN.CARDCBS ---
Addendum entered and electronically signed by Matt Mathews MD 03/05/24 15:34:
I saw and examined the patient.
The MUSIC EDUCATOR or PA's note was reviewed and I agree with the note.
Comment: General: Well developed, well nourished in NAD.
Neck: Supple, no JVD, HJR, carotids +2 B/L, no bruits bilaterally.
Heart: Non displaced PMI, RRR, no murmurs, No S3, S4, no rubs.
Lungs: Clear to auscultation bilaterally, no wheeze, rhonchi, rubs bilaterally,
normal expiratory phase.
Extremities: No clubbing, cyanosis or edema bilaterally.
Neuro: Grossly nonfocal, awake, alert and oriented x3.
Stable cardiology status for discharge on Tikosyn. Follow-up as been arranged. Discussed with primary service
Original Note:
Today's Communication / Plan
-
continue tikosyn
QTc stable
ok for DC if QTc remains stable after 5th dose
OP cardiac follow up arranged
Impression / Plan
-
PCP:
Primary technical proposal writer: Clinton Hernandez MD
Impression:
Ventricular tachycardia/Ventricular fibrillation status post ICD shock x 2
Atrial fibrillation status post ablation 11/2021 (dofetilide discontinued at this time)
Atrial tachycardia status post EP study 03/2022
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
VT 09/2020- seen at [facility] and had CV
DC ICD ([employer]) 10/02/20
Myocardial infarction 09/2020
Nonobstructive coronary artery disease
Vasovagal syncope
Sleep apnea
GERD
Diverticular disease
Anal cancer status post chemo and radiation
Bilateral shoulder surgery 2009
Cardiac contusion approximately 30 years ago
Cardiac catheterization on 09/29/2020 ([facility]) showed nonobstructive coronary artery disease and an ejection fraction of 40 to 45%.
Echocardiogram on 09/29/2020 ([facility]) showed an EF of 55% with no wall motion abnormalities.
Lexiscan Cardiolite stress test on 10/09/23 showing a fixed defects in the basal inferolateral, basal inferior, mid inferior lateral, and mid inferior segment of the apex consistent with soft tissue attenuation which improved with prone imaging. EF
was 57%.
ECHO 03/02/24: EF 55 to 60%, mild concentric LVH, stage II diastolic dysfunction, mild MAC, trace MR, mild TR, PAP 33 mmHg
Plan:
-Presented with VT/VF status post shock x 2, which occurred in the setting of physical exertion (sexual intercourse). He has history of VT resulting in ICD placement in 2020. No prior shocks.
-Cardiac catheterization 03/02 with nonobstructive coronary disease. trop 0.147, nonischemic myocardial injury likely due to shocks
-Echo with results as above, EF preserved
-cardiac MRI 03/03 no significant scar, some myocardial thickening of septal wall of mid to basal portion of left ventricle, reviewed with patient 03/03
-continue tikosyn 250mcg Q12H. had been on 250mcg in past for afib s/p PVI. QTc stable thus far. 5th dose today
-no further VT noted overnight on review of tele, in SR/SB
-continue lopressor 75mg BID
-could consider for OP VT ablation
-OP cardiac follow up arranged
-if QTc stable, ok for DC to home today from cardiac standpoint
-d/w nursing
Progress Note - Health Safety Engineer
Subjective
Date of Service: March 05, 2024
doing well. no complaints overnight
Objective
Labs:
03/03/24 04:38
03/04/24 05:08
Labs
Hgb 15.0 g/dL (13.0-18.0) 03/03/24 04:38
Hct 46.1 % (39.0-52.0) 03/03/24 04:38
Plt Count 114 10^3/uL (130-400) L 03/03/24 04:38
Sodium 138 mmol/L (135-145) 03/04/24 05:08
Potassium 4.3 mmol/L (3.5-5.1) 03/04/24 05:08
BUN 15 mg/dl (9-20) 03/04/24 05:08
Creatinine 1.0 mg/dL (0.7-1.3) 03/04/24 05:08
Glucose 108 mg/dl (70-99) H 03/04/24 05:08
Troponins
03/02/24 03/02/24
10:01 10:09
Troponin I Cancelled 0.147 H*
Vital Signs and I&O:
Vital Signs
Temp Pulse Resp BP Pulse Ox
98.7 F 75 18 120/75 95
03/05/24 06:40 03/05/24 05:00 03/05/24 06:40 03/05/24 04:34 03/05/24 06:40
Vital Signs
Temp Pulse Resp BP Pulse Ox
98.7 F 75 18 120/75 95
03/05/24 06:40 03/05/24 05:00 03/05/24 06:40 03/05/24 04:34 03/05/24 06:40
Intake & Output
03/03/24 03/04/24 03/05/24 03/06/24
07:59 07:59 07:59 07:59
Intake Total 1314 / 1314 720 / 720 960 / 960
Balance 1314 / 1314 720 / 720 960 / 960
Physical Exam
Physical Exam
GEN: No distress, awake, alert, oriented x3
HEENT: supple, anicteric, mmm, eomi
LUNGS: CTA B/L, no wheezes/rales
CV: Reg, S1/S2, no murmur
ABD: soft, BS+, NT/ND
EXT: No cyanosis, clubbing, edema
NEURO: Gross non-focal
SKIN: Warm, pink, dry. No rash
--- NOTE | 2024-03-05 08:54 | W.PN.HOSP.TC ---
Today's Communication/Plan
-
anticipate DC today post 10AM EKG
Assessment / Plan
Assessment / Plan
IMPRESSION:
Patient with history of atrial fibrillation, V. tach status post defibrillation in the past, now status post ablation and AICD, CAD status post SD, hypertension, obesity, NATALIE on CPAP presenting to the emergency department status post AICD firing.
Cardiac Cath 03/02/24
CONCLUSIONS
1. No obstructive coronary artery disease.
2. 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
3. LVEDP is 15 mmHg
TTE 03/02/24
CONCLUSIONS
Normal left ventricular chamber size. Normal left ventricular systolic
function. Normal regional wall motion. Mild concentric left ventricular
hypertrophy. Left ventricular ejection fraction is 55-60% by volumetric
assessment. Stage II diastolic dysfunction suggestive of abnormal relaxation
and increased filling pressures.
Normal right ventricular size and function. ICD wire seen in right ventricle.
Mitral valve opens normally. Mild mitral annular calcification. Trace mitral
regurgitation.
Trileaflet aortic valve. The aortic valve is structurally and functionally
normal.
Tricuspid valve opens normally. Mild tricuspid regurgitation. Estimated
pulmonary artery pressure of 33 mmHg assuming a right atrial pressure of 3
mmHg.
Cardiac MRI 03/03/24
IMPRESSION: There is myocardial thickening mainly involving the septal wall of the mid to basal portion of the left ventricle.
There is no evidence for abnormal enhancement of the left ventricle, with no MR findings to suggest significant scarring. There are no MR findings to suggest a focal area of myocardial infarction.
Normal morphology and wall motion of the right ventricle.
Calculated left ventricular ejection fraction of 43%, which subjectively is likely an underestimation, with ejection fraction likely greater than 50%.
PLAN:
1. AICD Firing
-Interrogation of device showed defibrillation starting 2.5 seconds after sensing V-fib and a second defibrillator 1 second liter. This terminated the V-fib.
-s/p cardiac cath on 9/3 without obstructive coronary disease
-TTE with preserved EF, mild LVH and diastolic dysfunction
-s/p cardiac MRI - no finding to suggest significant scarring
-continue HEAD OF STRATEGY Metoprolol, dose increased
-s/p initiation of Dofetilide 03/03 --> OK to DC post EKG this AM
2. AFIB - paroxysmal afib. No afib on ECG or telemetry. Not anticoagulated.
- continue rate control with metoprolol
3. NATALIE -
- CPAP HS
Patient with unspecified inflammatory arthritis on prednisone and sulfasalzine.
Continuing sertraline and Adderall
DVT PPX - lovenox SQ
Code status - Full code
Anticipated Discharge: Today
Subjective/Interval History
-
Date of Service: March 05, 2024
feeling well
no chest discomfort
ready to leave
Objective Data
-
Vital Signs:
Vital Signs
Temp Pulse Resp BP Pulse Ox
98.7 F 75 18 120/75 95
03/05/24 06:40 03/05/24 05:00 03/05/24 06:40 03/05/24 04:34 03/05/24 06:40
I&O
03/04/24 03/05/24 03/06/24
06:59 06:59 06:59
Intake Total 480 / 480 1200 / 1200
Balance 480 / 480 1200 / 1200
Review of Systems
-
History Source: Patient
All other systems: Reviewed and negative
Physical Exam
-
General: No Apparent Distress
HEENT: PERRLA
Respiratory: Clear to Auscultation; Negative Wheezes
Cardiac: Regular Rhythm and S1/S2
GI: Soft and Nontender
Musculoskeletal: No Edema
Skin: Warm and Dry; Negative Rash
Neuro: AO x 3
Psych: Calm
Data Reviewed
-
Diagnostic Radiology: Report Reviewed by me
Labs: Labs Reviewed by me
--- NOTE | 2024-03-05 10:43 | W.DS.TRANS ---
DC Summary - Frozen Foods Manager
-
Discharge Instructions:
Discharge Diagnosis/Procedures VT/VF s/p ICD shocks, Cardiac cath, tikosyn load
Diet Low Cholesterol
Activity As tolerated
Driving Restrictions No driving for 24 hours
Instructions:
Stand-Alone Forms: DC Instructions- Cath/EP Lab
Changes to Home Medications: Yes
Discharge Medications:
DC Medications w/original date entered in [employer]
dextroamphetamine-amphetamine ER 20 mg 24hr capsule,extend release (Adderall XR) 20 mg PO DAILY Mental Health/Anxiety 12/03/21
gabapentin 300 mg capsule 300 mg PO BID Pain 12/03/21
omeprazole 40 mg-sodium bicarbonate 1.1 gram capsule (Zegerid) 1 cap PO BID Gastrointestinal Issue 12/03/21
ropinirole 0.5 mg tablet 2 mg PO QPM Neurological Condition 12/03/21
tadalafil 20 mg tablet (Cialis) 20 mg PO PRN PRN ED 12/03/21
tadalafil 5 mg tablet (Cialis) 5 mg PO QPM Urinary Issue 12/03/21
tamsulosin 0.4 mg capsule 0.4 mg PO QPM Urinary Issue 12/03/21
dextroamphetamine-amphetamine 10 mg tablet 10 mg PO BID Mental Health/Anxiety 12/11/21
melatonin 3 mg tablet 5 mg PO HS Sleep 04/11/22
aspirin 81 mg tablet,delayed release (Pauly Low Dose Aspirin) 81 mg PO DAILY Blood Clot Prevention/Tx 03/02/24
bupropion HCl 150 mg tablet,12 hr sustained-release (Wellbutrin SR) 150 mg PO DAILY Mental Health/Anxiety 03/02/24
prednisone 5 mg tablet 5 mg PO DAILY Anti-Inflammatory 03/02/24
sertraline 100 mg tablet (Zoloft) 100 mg PO DAILY Mental Health/Anxiety 03/02/24
sulfasalazine 500 mg tablet 1 g PO BID 03/02/24
pravastatin 20 mg tablet 20 mg PO HS 03/03/24
dofetilide 250 mcg capsule 250 mcg PO Q12H #60 caps 03/04/24
metoprolol tartrate 50 mg tablet 75 mg (1.5 x 50 mg) PO BID Heart Disease/Condition #120 tabs 03/05/24
Home Medication Changes
new start Tikosyn
Increase metoprolol
Pending Results: No
--- NOTE | 2024-03-05 11:25 | CM ---
CM following for DC planning needs.
Met w/ patient at bedside. He is feeling well and is ready for DC to home.
Reviewed 3d RX for [place] w/ patient and RN.
There are no other DC needs identified.
Plan is for home, no needs.
--- NOTE | 2024-03-05 11:36 | PTCARENOTE ---
Discharge teaching completed with patient, verbalized understanding. IV and telemetry removed. will transport to home today around 1200.
--- NOTE | 2024-03-05 15:55 | W.DCSUMMARY ---
Discharge Summary
Discharge Data
Date of Admission: 03/02/24
Date of Discharge: 03/05/24
-
Pending Results: No
Hospital Course
Discharging Physician : Dr. Lizette Flynn
Disposition : Home
Primary care physician : Dr. Russell Martel
Principal Discharge diagnosis : Ventricular Tachycardia
Hospital Course :
Mr. Clinton Stephen is a 68 yo man with history of atrial fibrillation s/p ablation 2021, VT s/p CV and AICD placement 2020, CAD status post HI, hypertension, obesity, NATALIE on CPAP presenting to the emergency department status post AICD firing. He was
admitted to medicine with cardiology consulting. Patient underwent a cardiac cath on 03/02 which showed nonobstructive coronary disease. TTE with preserved ejection fraction. MRI without scarring. He was started on Dofetilide in the hospital with
stable Qtc. Discharged on 250mcg q 12 hours with close cardiac follow up. Additionally, his metoprolol dose was increased. No further VT during hospitalization.
Time spent on discharge was 35 minutes.
Procedure findings :
Cardiac Cath 03/02/24
CONCLUSIONS
1. No obstructive coronary artery disease.
2. 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
3. LVEDP is 15 mmHg
Important imaging findings :
TTE 03/02/24
CONCLUSIONS
Normal left ventricular chamber size. Normal left ventricular systolic
function. Normal regional wall motion. Mild concentric left ventricular
hypertrophy. Left ventricular ejection fraction is 55-60% by volumetric
assessment. Stage II diastolic dysfunction suggestive of abnormal relaxation
and increased filling pressures.
Normal right ventricular size and function. ICD wire seen in right ventricle.
Mitral valve opens normally. Mild mitral annular calcification. Trace mitral
regurgitation.
Trileaflet aortic valve. The aortic valve is structurally and functionally
normal.
Tricuspid valve opens normally. Mild tricuspid regurgitation. Estimated
pulmonary artery pressure of 33 mmHg assuming a right atrial pressure of 3
mmHg.
Cardiac MRI 03/03/24
IMPRESSION: There is myocardial thickening mainly involving the septal wall of the mid to basal portion of the left ventricle.
There is no evidence for abnormal enhancement of the left ventricle, with no MR findings to suggest significant scarring. There are no MR findings to suggest a focal area of myocardial infarction.
Normal morphology and wall motion of the right ventricle.
Calculated left ventricular ejection fraction of 43%, which subjectively is likely an underestimation, with ejection fraction likely greater than 50%.
Discharge Plan
-
Patient Disposition: Home (Routine Discharge)
Discharge Diagnosis/Procedures: VT/VF s/p ICD shocks, Cardiac cath, tikosyn load
Diet: Low Cholesterol
Activity: As tolerated
Driving Restrictions: No driving for 24 hours
Stand Alone Forms: DC Instructions- Cath/EP Lab
Referrals:
Layla Limon CRNP [Specified Professional Personl] - 03/18/24 1:40 pm
Russell Martel DO [Family Provider] - in less than 1 week
Additional Discharge Medication Instructions: You are newly started on Tikosyn twice a day.
Your Metoprolol is increased from 50mg twice a day to 75mg twice a day.
Prescriptions:
New
dofetilide 250 mcg Capsule
250 mcg PO Q12H Qty: 60 11RF
metoprolol succinate [Toprol XL] 50 mg tablet extended release 24 hr
50 mg PO BID Qty: 1 0RF
Rx Instructions:
Please take 1 50mg tablet with 1 25 mg tablet twice daily for total of 75mg BID.
metoprolol succinate [Toprol XL] 25 mg tablet extended release 24 hr
25 mg PO BID Qty: 60 5RF
Rx Instructions:
Please take 1 50mg tablet with 1 25 mg tablet twice daily for total of 75mg BID.
Continued
tamsulosin 0.4 MG capsule
0.4 mg PO QPM
dextroamphetamine-amphetamine [Adderall XR] 20 MG capsule,extended release 24hr
20 mg PO DAILY
ropinirole 0.5 MG tablet
2 mg PO QPM
gabapentin 300 MG capsule
300 mg PO BID
tadalafil [Cialis] 5 MG tablet
5 mg PO QPM
omeprazole-sodium bicarbonate [Zegerid] 1 EACH capsule
1 cap PO BID
dextroamphetamine-amphetamine 10 MG tablet
10 mg PO BID
melatonin 3 mg Tablet
5 mg PO HS
bupropion HCl [Wellbutrin SR] 150 mg Tablet Sustained-Release 12 Hr
150 mg PO DAILY
sulfasalazine 500 mg Tablet
1 g PO BID
sertraline [Zoloft] 100 mg Tablet
100 mg PO DAILY
prednisone 5 mg Tablet
5 mg PO DAILY
aspirin [Pauly Low Dose Aspirin] 81 mg Tablet,Delayed Release (Dr/Ec)
81 mg PO DAILY
pravastatin 20 mg Tablet
20 mg PO HS
Held
tadalafil [Cialis] 20 MG tablet
20 mg PO PRN PRN (Reason: ED)
Hold Instructions: Resume on 03/12/24.
Discontinued
metoprolol tartrate 50 MG tablet
50 mg PO BID
Discharge Orders:
Discharge Patient (As Directed); Ordered 03/05/24
Ordered By: Lizette Flynn
Care Plan Goals
Care Plan Goals:
Problem: Readiness for enhanced knowledge related to diagnosis and treatment plan
Goal: Understand your diagnosis and treatment plan needs, including medications if applicable.
Instructions: Know your diagnosis, underlying causes and treatment plan options, including medications if applicable. Consult with your health care team to learn about your diagnosis and treatment plan, including medications if applicable.
Discharge Date and Time
Discharge Date/Time: 03/05/24 12:14
Print Language: GREEK
== END 2024-03-05 12:14 | disposition home or self-care (01) | DRG 287 ==
LOC: IVU 01:30
PROVIDERS: Emergency Medicine; Internal Medicine Interventional Cardiology; Nurse Practitioner Adult Health; ADMITTING PHYSICIAN Internal Medicine; ATTENDING PHYSICIAN Student in an Organized Health Care Education/Training Program; EMERGENCY PHYSICIAN Emergency Medicine; FAMILY PHYSICIAN Family Medicine; OTHER PHYSICIAN Internal Medicine Cardiovascular Disease
PROC: B2111ZZ Fluoroscopy of Multiple Coronary Arteries using Low Osmolar Contrast (ICD-10-PCS; 2024-03-02)
PROC: 4A023N7 Measurement of Cardiac Sampling and Pressure, Left Heart, Percutaneous Approach (ICD-10-PCS; 2024-03-02)
PROC: B2151ZZ Fluoroscopy of Left Heart using Low Osmolar Contrast (ICD-10-PCS; 2024-03-02)
DX: I49.01 Ventricular fibrillation (principal); I5A Non-ischemic myocardial injury (non-traumatic); I48.0 Paroxysmal atrial fibrillation; G47.33 Obstructive sleep apnea (adult) (pediatric)
CPT/HCPCS: 75561; 80048; 80053; 83735; 84484; 85025; 85027; 86803; 87070; 93005; 93306; 93458; 94660; 99152; 99285; A9585; C1894; Q9967

== ENCOUNTER 2024-03-10 19:47 | Emergency (ER) | payer MEDICARE, OTHER, SELFPAY ==
[2024-03-10 19:51] VITALS: BP 146/77
[2024-03-10 21:09] VITALS: BP 117/80
--- NOTE | 2024-03-10 21:22 | ED.GENMED ---
History of Present Illness
General
Chief Complaint: Swelling
Source: patient
Exam Limitations: none
Time Seen by Provider: 03/10/24 20:44
Nursing documentation reviewed up to this point in time: agreed with
History of Present Illness
History of Present Illness:
Patient to ED with complaint of worsening pain and swelling to LUE. States he was inpatient here last week after an episode of VT/VF. Reports having an IV in LUe and reports pain started at site and has moved up his arm He was seen by his PCP and
placed on an antibitiotic but states pain continues to worsen. brought to ED by spouse for eval. Denies fever/chills, SOB, CP. No other complaints
Past History
Past History
ED Past Medical History: Arrthythmia
ED Past Surgical History: Cardiac
Social History
Tobacco: Non-smoker
Alcohol: Occasional
Drug: None
Personal:
Living: with family
Review of Systems
Review of Systems
Allergies reviewed?: Yes
All Other Systems: ROS reviewed and negative except as documented in HPI and ROS
Constitutional: Reports no symptoms
EENT: Reports no symptoms
Respiratory: Reports no symptoms
Cardiac: Reports no symptoms
ABD/GI: Reports no symptoms
Musculoskeletal: Reports no symptoms
Skin: Reports other (erythema and swelling to LUE)
Neurological: Reports no symptoms
Psychiatric: Reports no symptoms
Phy Exam
General Physical Exam
General Presentation: well appearing and no apparent distress
General age: appears stated age
General Skin: warm and dry
General Habitus: normal
General Mental: alert
General Hydration: appears well hydrated
Cardiovascular Exam
Cardiovascular Exam: regular rate/rhythm and no edema
Pulmonary Exam
Pulmonary Exam: lungs clear and no respiratory distress
Musculoskeletal Exam
Musculoskeletal Exam: full ROM and neuro vasc intact
Skin Exam
Skin Exam: warm/dry, no rash and other (erythema and swelling to LUE)
Psychiatric Exam
Psychiatric Exam: normal mood/affect
Scores
Heart Failure Risk
Heart Failure Risk Score: Not Applicable
Course
Orders/Labs/Results
Orders:
Orders
03/10/24 19:56
US Arms, Left [US Periph Venous UPPER Ext LT] Urgent
Comment:
Reason For Exam: swelling
03/10/24 21:28
CMP [Comprehensive Metabolic Panel] Urgent
Complete Blood Count/With Diff Urgent
03/10/24 22:04
Rivaroxaban [Xarelto] 15 mg PO NOW STA
Abnormal Lab Results
03/10/24
21:28
RDW 17.9 H %
(11.5-14.5)
Absolute Monos (auto) 0.8 H 10^3/uL
(0.1-0.6)
Immature Gran % 0.6 H %
(0-0.5)
Monocytes % 12.6 H %
(1.7-9.3)
Glucose 123 H mg/dl
(70-99)
03/10/24 21:28
03/10/24 21:28
Vital Signs
Initial and Last Documented VS:
Initial Vital Signs
Temp Pulse Resp BP Pulse Ox
98.3 F 79 18 146/77 95
03/10/24 19:51 03/10/24 19:51 03/10/24 19:51 03/10/24 19:51 03/10/24 19:51
Last Documented Vital Signs
Temp Pulse Resp BP Pulse Ox
98.3 F 70 18 107/75 94
03/10/24 19:51 03/10/24 22:14 03/10/24 22:14 03/10/24 22:14 03/10/24 22:14
*Radiology
Radiology exam reviewed: radiology read reviewed
*Critical Care Note
Total Time (30-74mins, 75-104mins- exclusive of procedures): Not Applicable
Update Note
Update Note:
+DVT LUE. Case discussed with Dr. Orozco, Dr. Caldwell. No history of TOS. Will place back on Xarelto and discharge home. He will follow up with PCP in AM. Given instructions on s/s to return to ED and he is agreeable to plan.
ED Attending Note
-
Portions of this chart may have been created with voice recognition software.� Occasional wrong word or��sound alike� substitutions may have occurred due to the inherent limitations of voice recognition software.
Discharge Plan
Departure
Patient Disposition: Home (Routine Discharge)
Date of Disposition: 03/10/24
Time of Disposition: 22:05
Patient with high blood pressure during this ER visit?: No
Condition: Good
Covid-19: Not Applicable
Discharge Problem:
DVT (deep venous thrombosis)
Instructions: Deep Vein Thrombosis (DVT) ED
Prescriptions:
New
Xarelto DVT-PE Treat 30d Start 15 mg (42)- 20 mg (9) tablets,dose pack
See Rx Instructions .ROUTE .COMPLEX Qty: 51 0RF
Rx Instructions:
15mg twice each day for 21 days, then 20mg daily.
No Action
tamsulosin 0.4 MG capsule
0.4 mg PO QPM
dextroamphetamine-amphetamine [Adderall XR] 20 MG capsule,extended release 24hr
20 mg PO DAILY
ropinirole 0.5 MG tablet
2 mg PO QPM
gabapentin 300 MG capsule
300 mg PO BID
tadalafil [Cialis] 5 MG tablet
5 mg PO QPM
tadalafil [Cialis] 20 MG tablet
20 mg PO PRN PRN (Reason: ED)
omeprazole-sodium bicarbonate [Zegerid] 1 EACH capsule
1 cap PO BID
dextroamphetamine-amphetamine 10 MG tablet
10 mg PO BID
melatonin 3 mg Tablet
5 mg PO HS
bupropion HCl [Wellbutrin SR] 150 mg Tablet Sustained-Release 12 Hr
150 mg PO DAILY
sulfasalazine 500 mg Tablet
1 g PO BID
sertraline [Zoloft] 100 mg Tablet
100 mg PO DAILY
prednisone 5 mg Tablet
5 mg PO DAILY
aspirin [Pauly Low Dose Aspirin] 81 mg Tablet,Delayed Release (Dr/Ec)
81 mg PO DAILY
pravastatin 20 mg Tablet
20 mg PO HS
dofetilide 250 mcg Capsule
250 mcg PO Q12H Qty: 60 11RF
metoprolol succinate [Toprol XL] 50 mg tablet extended release 24 hr
50 mg PO BID Qty: 1 0RF
Rx Instructions:
Please take 1 50mg tablet with 1 25 mg tablet twice daily for total of 75mg BID.
metoprolol succinate [Toprol XL] 25 mg tablet extended release 24 hr
25 mg PO BID Qty: 60 5RF
Rx Instructions:
Please take 1 50mg tablet with 1 25 mg tablet twice daily for total of 75mg BID.
Activity Restrictions/Additional Instructions:
Follow up with your family doctor in the AM. Return to the emergency department immediately for chest pain/pressure, any difficulty breathing, or for any further concerns.
Interventions
Interventions:
*Risk Screen - Suicide Last Done: 03/10/24 19:49
*General Assessment Last Done: 03/10/24 19:51
*Neglect/Abuse Screening Last Done: 03/10/24 19:51
*Nursing Disposition Last Done: 03/10/24 22:50
ED- Cardiac Assessment Last Done: 03/10/24 21:17
ED- Pulmonary Assessment Last Done: 03/10/24 21:14
ED-Skin Assessment Last Done: 03/10/24 21:14
Discharge Date and Time
Discharge Date/Time: 03/10/24 22:51
Print Language: SERBIAN
[2024-03-10 21:38] LABS: % Basophils 0.3 % (0-2); % Eosinophils 1.8 % (0-6); % Immature Granulocytes 0.6 % (0-0.5); % Lymphocytes 21.4 % (20.5-51.1); % Monocytes 12.6 % (1.7-9.3); % Neutrophils 63.3 % (42.2-75.2); Absolute Eosinophils 0.1 10^3/uL (0-0.7); Absolute Lymphocytes 1.3 10^3/uL (1.2-3.4); Absolute Monocytes 0.8 10^3/uL (0.1-0.6); Absolute Neutrophils 3.9 10^3/uL (1.4-6.5); Hematocrit 46.1 % (39.0-52.0); Hemoglobin 15.3 g/dL (13.0-18.0); Mean Corp Hgb Conc. 33.2 g/dL (33.0-37.0); Mean Corpuscular Hgb 27.6 pg (27.0-31.0); Mean Corpuscular Volume 83.1 fL (80.0-94.0); Mean Platelet Volume 9.9 fL (7.4-10.4); Nucleated Red Blood Cells % 0 % (-); Platelet Count 134 10^3/uL (130-400); Red Blood Cell Count 5.55 10^6/uL (4.70-6.10); Red Cell Dist. Width 17.9 % (11.5-14.5); White Blood Cell Count 6.2 10^3/uL (4.8-10.8)
[2024-03-10 22:02] LABS: ALT (SGPT) 25 U/L (0-50); AST (SGOT) 24 U/L (17-59); Albumin 3.9 g/dl (3.5-5.0); Alkaline Phosphatase 46 U/L (38-126); Blood Urea Nitrogen 19 mg/dl (9-20); Calcium 9.1 mg/dl (8.4-10.2); Carbon Dioxide 25 mmol/L (22-30); Chloride 103 mmol/L (98-107); Glucose 123 mg/dl (70-99); Potassium 3.9 mmol/L (3.5-5.1); Sodium 139 mmol/L (135-145); Total Bilirubin 0.5 mg/dl (0.2-1.3); Total Protein 6.4 g/dl (6.3-8.2); eGFR > 60.00
[2024-03-10 22:14] VITALS: BP 107/75
[2024-03-10] MEDS: XARELTO 15 MG PO (22:36)
== END 2024-03-10 22:51 | disposition home or self-care (01) ==
LOC: EMR 19:47
PROVIDERS: Nurse Practitioner; EMERGENCY PHYSICIAN Emergency Medicine; FAMILY PHYSICIAN Family Medicine
DX: I82.622 Acute embolism and thrombosis of deep veins of left upper extremity (principal); R22.32 Localized swelling, mass and lump, left upper limb; Z79.01 Long term (current) use of anticoagulants
CPT/HCPCS: 99284; 80053; 85025; 93971

== ENCOUNTER 2025-03-29 07:12 | Inpatient (IN) | payer MEDICARE, OTHER, SELFPAY ==
[2025-03-26 20:16] VITALS: BP 142/78
[2025-03-26 20:40] LABS: Hematocrit 43.4 % (39.0-52.0); Hemoglobin 13.9 g/dL (13.0-18.0); Mean Corp Hgb Conc. 32.0 g/dL (33.0-37.0); Mean Corpuscular Volume 81.7 fL (80.0-94.0); Nucleated Red Blood Cells % 0 % (-); Platelet Count 142 10^3/uL (130-400); Red Cell Dist. Width 18.9 % (11.5-14.5)
[2025-03-26 21:05] LABS: ALT (SGPT) 29 U/L (0-50); AST (SGOT) 25 U/L (17-59); Albumin 3.9 g/dl (3.5-5.0); Alkaline Phosphatase 42 U/L (38-126); Blood Urea Nitrogen 13 mg/dl (9-20); Calcium 8.8 mg/dl (8.4-10.2); Carbon Dioxide 28 mmol/L (22-30); Chloride 107 mmol/L (98-107); Glucose 124 mg/dl (70-99); Potassium 4.4 mmol/L (3.5-5.1); Sodium 137 mmol/L (135-145); Total Protein 6.6 g/dl (6.3-8.2); eGFR > 60.00
[2025-03-26 21:18] LABS: Troponin I < 0.012 ng/ml
[2025-03-26 21:27] VITALS: BP 127/75
[2025-03-26 22:00] VITALS: BP 141/54
[2025-03-26 22:15] VITALS: BMI 30.3
[2025-03-26 23:00] VITALS: BP 115/75
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
--- NOTE | 2025-03-26 23:31 | HPS.HSE ---
Family Physician
-
Family Physician: Michael Schwartz
Chief Complaint
-
AICD discharge
History of Present Illness
This is a 69-year-old male with past medical history of atrial fibrillation status post ablation and cardioversion, VT status post AICD placement, CAD status post VA, hypertension, NATALIE on CPAP, obesity, presents to the emergency department
immediately following 1 discharge from his AICD device.
Patient reported that he had more activity today spent most of the day outside of the home and felt tired throughout the day but otherwise denies having any chest pain exertional dyspnea lightheadedness dizziness or palpitations. On arrival at home
she went to bed at around 5 PM but will was not able to sleep. He was looking at his phone laying in bed when he felt a sudden jolt that send phone out of his hands. He initially was not aware of what happened but then thought he might of had
device firing. He called his stranner who informed him that his device did fire and he should come to the emergency department. Since device fired patient reported that it is exacerbated left shoulder arm pain.
Reports intermittent chest pain over several months and has been seen by stranner who felt this is noncardiac. He denies exertional chest pain, exertional dyspnea, orthopnea or PND or lower extremity swelling. He reports compliance with his
medications and stated that he does take his Tikosyn twice a day but not exactly 12 hours apart.
Has a history of atrial fibrillation that was treated with ablation and has not had atrial fibrillation since and is off anticoagulation. After the ablation he developed PVCs and then V. tach with status post AICD placement.
Patient had similar episode a year ago with AICD discharge when off he underwent a cardiac catheterization on last year which showed nonobstructive disease. AC EF was preserved. He also had an MRI which showed no scarring and was started on
dofetilide in the hospital. He had no further events and he was feeling that time and has denied any further events since.
In the emergency department today he was afebrile, blood pressure of 150/75 with a pulse rate of 82 and was satting 96% on room air. ECG shows paced rhythm at a rate of [address] or T wave changes. Troponin was 0.012. Electrolytes
were completely unremarkable with potassium of 4.4, mag is pending. BUN and creatinine were normal. CBC is unremarkable.
Medical History
Past Medical History
Past Medical History: Reports HTN and VA
Additional Past Medical History:
paroxysmal atrial fibrillation
VT s/p ablation
S/P AICD
NATALIE on CPAP
Past Surgical History: Reports None
Social History
Tobacco: Non-smoker
Alcohol: None
Drug: None
Personal:
Living: With Family
Employment: Employed
Family History
Family History: Not pertinent
Allergies / Home Medications
Allergies reflects when Allergies were last updated in [employer].
Home Medications with original date entered in [employer]
Allergy/Medication List:
Allergies
Allergy/AdvReac Type Severity Reaction Status Date / Time
shrimp Allergy Unknown facial Verified 03/26/25 20:27
swelling
clindamycin Allergy Facial Verified 03/26/25 20:27
Swelling
dog dander Allergy runny nose Verified 03/26/25 20:27
modafinil (From [employer]) Allergy Pharmacy Verified 03/26/25 20:27
to Review
Home Medications
dextroamphetamine-amphetamine ER 20 mg 24hr capsule,extend release (Adderall XR) 20 mg PO DAILY Mental Health/Anxiety 12/03/21
gabapentin 300 mg capsule 300 mg PO BID Pain 12/03/21
omeprazole 40 mg-sodium bicarbonate 1.1 gram capsule (Zegerid) 1 cap PO BID Gastrointestinal Issue 12/03/21
ropinirole 0.5 mg tablet 2 mg PO QPM Neurological Condition 12/03/21
tadalafil 20 mg tablet (Cialis) 20 mg PO PRN PRN ED 12/03/21
Held on 03/05/24. Instructions: Resume on 03/12/24.
tadalafil 5 mg tablet (Cialis) 5 mg PO QPM Urinary Issue 12/03/21
tamsulosin 0.4 mg capsule 0.4 mg PO QPM Urinary Issue 12/03/21
dextroamphetamine-amphetamine 10 mg tablet 10 mg PO BID Mental Health/Anxiety 12/11/21
melatonin 3 mg tablet 5 mg PO HS Sleep 04/11/22
aspirin 81 mg tablet,delayed release (Pauly Low Dose Aspirin) 81 mg PO DAILY Blood Clot Prevention/Tx 03/02/24
bupropion HCl 150 mg tablet,12 hr sustained-release (Wellbutrin SR) 150 mg PO DAILY Mental Health/Anxiety 03/02/24
prednisone 5 mg tablet 5 mg PO DAILY Anti-Inflammatory 03/02/24
sertraline 100 mg tablet (Zoloft) 100 mg PO DAILY Mental Health/Anxiety 03/02/24
sulfasalazine 500 mg tablet 1 g PO BID 03/02/24
pravastatin 20 mg tablet 20 mg PO HS 03/03/24
dofetilide 250 mcg capsule 250 mcg PO Q12H #60 caps 03/04/24
metoprolol succinate 25 mg tablet,extended release 24 hr (Toprol XL) 25 mg PO BID #60 tabs 03/05/24
metoprolol succinate 50 mg tablet,extended release 24 hr (Toprol XL) 50 mg PO BID #1 tab 03/05/24
rivaroxaban 15 mg (42)-20 mg (9) tablets in a starter pack (Xarelto DVT-PE Treatment 30-Day Starter) See Rx Instructions PO .COMPLEX #51 ea 03/10/24
Review of Systems
-
History Source: Patient
Constitutional: Reports No Symptoms
EENT: Reports No Symptoms
Respiratory: Reports No Symptoms
Cardiac: Reports Chest Pain
Abdomen/GI: Reports No Symptoms
: Reports No Symptoms
Musculoskeletal: Reports No Symptoms
Skin: Reports No Symptoms
Neurological: Reports No Symptoms
Endocrine: Reports No Symptoms
Hematologic/Lymphatic: Reports No Symptoms
Psych: Reports No Symptoms
Physical Exam
Vital Signs
Vital Signs
Temp Pulse Resp BP Pulse Ox
98.0 F 82 18 115/75 96
03/26/25 20:16 03/26/25 23:00 03/26/25 23:00 03/26/25 23:00 03/26/25 23:30
Physical Exam
General: Well Developed, Well Nourished, No Apparent Distress and Comfortable
HEENT: NormoCephalic, Anicteric, Moist mucous membranes and Atraumatic
Respiratory: Clear
Cardiac: S1/S2 and Regular Rhythm
Breast: Deferred by me
GI: Soft, Non Tender, Non Distended and Normal Bowel Sounds
Rectal: Deferred by Provider
Genito-urinary: Deferred by me
Musculoskeletal: No Clubbing, No Cyanosis and No Edema
Skin: Warm and Dry
Neuro: AO x 3
Hematologic/Lymphatic: No Lymphadenopathy
Psych: Calm
Laboratory Results
-
03/26/25 20:32
03/26/25 20:32
Laboratory Results
Total Bilirubin 0.5 mg/dl (0.2-1.3) 03/26/25 20:32
AST 25 U/L (17-59) 03/26/25 20:32
ALT 29 U/L (0-50) 03/26/25 20:32
Alkaline Phosphatase 42 U/L (38-126) 03/26/25 20:32
Troponin I < 0.012 ng/ml 03/26/25 20:32
Data Reviewed
-
Medical Tests (Nuc Med, Echo, EKG etc): Image Personally Visualized and interpreted
Lab Data: Labs Reviewed by me
Old Records: Reviewed
Impression/Plan
-
IMPRESSION:
69 y.o h/o afib s/p ablation and no longer requiring AC, VT s/p AICD, CAD status post VA, hypertension, obesity, RA, NATALIE on CPAP presenting to the emergency department status post AICD firing.
PLAN:
1. AICD Discharge - One shock terminating Vfib. Patient was asymptomatic prior to the shock. ECG showed paced rhythm. His labs were unremarkable. Troponin negative. Denies CP but states left shoulder pain since discharge.
- admit to telemetry
- trend troponin
- continue dofetilide
- continue aspirin daily
- continue metoprolol.
- cardiology consult
2. AFIB - Has been free of AFIB since ablation
- continue rate control with metoprolol
3. NATALIE -
- CPAP HS
4. Arthritis -
Patient with unspecified inflammatory arthritis on prednisone and sulfasalzine.
5. RLS - Continuing sertraline and Adderall
DVT PPX - lovenox SQ
Code status - Full code
[2025-03-27] VITALS (8 sets, daily range): BP systolic 111–147; BP diastolic 64–89; PULSE 80; BMI 30.3
[2025-03-27 04:33] LABS: Troponin I < 0.012 ng/ml
[2025-03-27 07:17] LABS: Troponin I < 0.012 ng/ml
[2025-03-27] MEDS: AZULFIDINE 500 MG PO ×2 (08:55→19:39)
[2025-03-27] MEDS: PROTONIX 40 MG PO ×2 (08:56→19:41)
[2025-03-27] MEDS: TIKOSYN 250 MCG PO ×2 (08:56→10:12)
[2025-03-27] MEDS: WELLBUTRIN SR (12 hour sustained release) 150 MG PO (08:56)
[2025-03-27] MEDS: TOPROL XL 75 MG PO ×2 (08:59→19:39)
[2025-03-27] MEDS: ZOLOFT 100 MG PO (08:59)
[2025-03-27] MEDS: DELTASONE 5 MG PO (08:59)
[2025-03-27] MEDS: ASPIR LOW (ENTERIC COATED) 81 MG PO (08:59)
[2025-03-27] MEDS: ADDERALL 10 MG PO (09:00)
--- NOTE | 2025-03-27 10:57 | CM ---
Reviewed the chart notes and spoke with the patient and spouse at the bedside. The patient is admitted under observation status. The VARGAS letter was provided and explained. The patient had no questions with regards to the letter.
The patient resides with his spouse in a multi-level home with five steps to enter. The patient reports no DME/VN/SNF in the past. The patient confirmed his pharmacy of choice is [facility]. CM continues to be available to patient/family and is
monitoring medical plan for needs at discharge.
Plan: Discharge to home when medically stable. No needs anticipated at this time.
--- NOTE | 2025-03-27 11:15 | W.PN.HOSP.TC ---
Today's Communication/Plan
-
Tikosyn dose increased
continue Metop
Tele monitoring
left shoulder x-ray
Assessment / Plan
Assessment / Plan
IMPRESSION:
69 y.o h/o afib s/p ablation and no longer requiring AC, VT s/p AICD, CAD status post KS, hypertension, obesity, RA, NATALIE on CPAP presenting to the emergency department status post AICD firing.
PLAN:
1. AICD Discharge - One shock terminating Vfib. Patient was asymptomatic prior to the shock. ECG showed paced rhythm. His labs were unremarkable. Troponin negative. Denies CP but states left shoulder pain since discharge.
- admit to telemetry
- trend troponin
- continue dofetilide --> dose increased per Cardiology
- continue aspirin daily
- continue metoprolol 75mg PO BID
- cardiology consult
2. AFIB - Has been free of AFIB since ablation
- continue rate control with metoprolol
3. NATALIE -
- CPAP HS
4. Arthritis -
Patient with unspecified inflammatory arthritis on prednisone and sulfasalzine.
Left shoulder pain, likely muscle spasm post shock
-will obtain x-ray
5. RLS - Continuing sertraline and Adderall
DVT PPX - lovenox SQ
Code status - Full code
Anticipated Discharge: 24 - 48 hours
Subjective/Interval History
-
Date of Service: March 27, 2025
continues to have left shoulder discomfort
no firing overnight
may have taken lower dose Metoprolol prior to event, patient is unsure
Objective Data
-
Vital Signs:
Vital Signs
Temp Pulse Resp BP Pulse Ox
97.3 F 77 18 123/73 95
03/27/25 07:15 03/27/25 07:15 03/27/25 07:15 03/27/25 07:15 03/27/25 07:15
Review of Systems
-
History Source: Patient
All other systems: Reviewed and negative
Physical Exam
-
General: No Apparent Distress
HEENT: PERRLA
Respiratory: Clear to Auscultation; Negative Wheezes
Cardiac: Regular Rhythm and S1/S2
GI: Soft and Nontender
Musculoskeletal: No Edema and Other (can lift up/flex left shoulder but feels tight)
Skin: Warm and Dry; Negative Rash
Neuro: AO x 3
Psych: Calm
Data Reviewed
-
Diagnostic Radiology: Report Reviewed by me
Labs: Labs Reviewed by me
[2025-03-27 12:06] LABS: Magnesium 2.2 mg/dl (1.6-2.3)
--- NOTE | 2025-03-27 13:03 | CON.CAR ---
Consultation
Consultation Request
Date/Time Consultation Requested: 03/27/25
Date/Time Consultation Performed: 03/27/25
Requesting Provider: Jacque
Performing Provider: Alma
Reason for Consultation: ICD shock for VT/VF
Medical History
-
Chief Complaint: ICD shock
History of Present Illness:
69-year-old man past medical history of VT/VF who presented to [facility] emergency department on the evening of 03/26/2025 after ICD shock. Patient tells me he was resting comfortably in bed and was asymptomatic at the time of the defibrillator
shock. He had no preceding chest discomfort, dyspnea, palpitations, presyncope or syncope. Tells me he was in his usual state of health and has had no changes to recent medications.
Device interrogation does the emergency department revealed an episode of VT VF at a rate of approximately 250 bpm for which he was shocked appropriately by his AICD. Initially ECG shows AV paced rhythm. Lab work including troponin and CXR was
largely unrevealing.
PMHx:
Ventricular tachycardia/Ventricular fibrillation status post ICD shock x 2
Atrial fibrillation status post ablation 11/2021 (dofetilide discontinued at this time)
Atrial tachycardia status post EP study 03/2022
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
VT 09/2020- seen at [facility] and had CV
DC ICD ([employer]) 10/02/20
Myocardial infarction 09/2020
Nonobstructive coronary artery disease
Vasovagal syncope
Sleep apnea
GERD
Diverticular disease
Anal cancer status post chemo and radiation
Bilateral shoulder surgery 2009
Cardiac contusion approximately 30 years ago
Past Medical History
Past Medical History: Other (As above)
Past Surgical History: Other (As above)
Social History
Tobacco: Non-Smoker
Personal:
Living: With Family
Family History
Family History: Reviewed & Not Pertinent
Allergies / Home Medications
Allergy/AdvReac Type Severity Reaction Status Date / Time
shrimp Allergy Unknown facial Verified 03/26/25 20:27
swelling
clindamycin Allergy Facial Verified 03/26/25 20:27
Swelling
dog dander Allergy runny nose Verified 03/26/25 20:27
modafinil (From [employer]) Allergy Pharmacy Verified 03/26/25 20:27
to Review
�Medication �Instructions �Recorded �Confirmed �Type
dextroamphetamine-amphetamine ER 20 mg PO DAILY Mental 12/03/21 03/27/25 History
20 mg 24hr capsule,extend release Health/Anxiety
(Adderall XR)
gabapentin 300 mg capsule 300 mg PO BID Pain 12/03/21 03/27/25 History
omeprazole 40 mg-sodium 1 cap PO BID Gastrointestinal Issue 12/03/21 03/27/25 History
bicarbonate 1.1 gram capsule
(Zegerid)
ropinirole 0.5 mg tablet 2 mg PO QPM Neurological Condition 12/03/21 03/27/25 History
tadalafil 5 mg tablet (Cialis) 5 mg PO QPM Urinary Issue 12/03/21 03/27/25 History
dextroamphetamine-amphetamine 10 10 mg PO BID Mental Health/Anxiety 12/11/21 03/27/25 History
mg tablet
melatonin 3 mg tablet 5 mg PO HS Sleep 04/11/22 03/27/25 History
aspirin 81 mg tablet,delayed 81 mg PO DAILY Blood Clot 03/02/24 03/27/25 History
release (Pauly Low Dose Aspirin) Prevention/Tx
bupropion HCl 150 mg tablet,12 hr 150 mg PO DAILY Mental 03/02/24 03/27/25 History
sustained-release (Wellbutrin SR) Health/Anxiety
prednisone 5 mg tablet 10 mg PO DAILY Anti-Inflammatory 03/02/24 03/27/25 History
sertraline 100 mg tablet (Zoloft) 100 mg PO DAILY Mental 03/02/24 03/27/25 History
Health/Anxiety
sulfasalazine 500 mg tablet 1 g PO BID 03/02/24 03/27/25 History
pravastatin 20 mg tablet 20 mg PO HS 03/03/24 03/27/25 History
dofetilide 250 mcg capsule 250 mcg PO Q12H #60 caps 03/04/24 03/27/25 Rx
metoprolol succinate 25 mg 25 mg PO BID #60 tabs 03/05/24 03/27/25 Rx
tablet,extended release 24 hr
(Toprol XL)
metoprolol succinate 50 mg 50 mg PO BID #1 tab 03/05/24 03/27/25 Rx
tablet,extended release 24 hr
(Toprol XL)
silodosin 4 mg capsule 4 mg PO DAILY 03/27/25 03/27/25 History
Review of Systems
-
History Source: Patient
All other systems: Negative unless noted
Physical Exam
Vital Signs
Temp Pulse Resp BP Pulse Ox
97.8 F 77 18 125/64 96
03/27/25 11:10 03/27/25 11:10 03/27/25 11:10 03/27/25 11:10 03/27/25 11:10
Lab Results
03/26/25 20:32
03/26/25 20:32
Troponin I Cancelled 03/27/25 09:23
Physical Exam
General: Well Developed
HEENT: Normocephalic
Cardiac: S1/S2 and Regular Rhythm
GI: Soft
Musculoskeletal: No Edema
Skin: Warm and Dry
Neuro: AO x 3
Psych: Calm
Impression / Plan
-
Primary staffing executive: Clinton Hernandez MD
Impression:
Ventricular tachycardia/Ventricular fibrillation status post ICD shock x 2
Atrial fibrillation status post ablation 11/2021 (dofetilide discontinued at this time)
Atrial tachycardia status post EP study 03/2022
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
VT 09/2020- seen at [facility] and had CV
DC ICD ([employer]) 10/02/20
Myocardial infarction 09/2020
Nonobstructive coronary artery disease
Vasovagal syncope
Sleep apnea
GERD
Diverticular disease
Anal cancer status post chemo and radiation
Bilateral shoulder surgery 2009
Cardiac contusion approximately 30 years ago
Cardiac catheterization on 09/29/2020 ([facility]) showed nonobstructive coronary artery disease and an ejection fraction of 40 to 45%.
Echocardiogram on 09/29/2020 ([facility]) showed an EF of 55% with no wall motion abnormalities.
Lexiscan Cardiolite stress test on 10/09/23 showing a fixed defects in the basal inferolateral, basal inferior, mid inferior lateral, and mid inferior segment of the apex consistent with soft tissue attenuation which improved with prone imaging. EF
was 57%.
ECHO 03/02/24: EF 55 to 60%, mild concentric LVH, stage II diastolic dysfunction, mild MAC, trace MR, mild TR, PAP 33 mmHg
Plan:
-Presented following ICD shock for VT/VF. He has history of VT resulting in ICD placement in 2020. Prior admission following ICD shock in 2023.
-Has been monitored on telemetry here and is maintaining sinus rhythm
-Trop undetectable x3 here. Cardiac catheterization 02/2024 with nonobstructive coronary disease.
-Prior echo with NL LVEF
-Recommend increasing Tikosyn 500mcg Q12H with ECG 1hr post for QTc monitoring
-Continue metoprolol
-Replete electrolyes PRN for goal K>4, Mg>2
-Check echo in AM
-Consider eventual VT ablation as OP
Data Reviewed
-
EKG: Tracing Personally Visualized and interpreted
Radiology: Image Personally Visualized and interpreted
MRI: Report Reviewed by me
Medical Tests (Nuc Med, Echo etc): Report Reviewed by me
Labs: Labs Reviewed by me
Old Records: Reviewed
[2025-03-27] MEDS: ADDERALL PO (15:43)
[2025-03-27] MEDS: REQUIP 2 MG PO (17:46)
[2025-03-27] MEDS: LOVENOX 40 MG SC (17:46)
[2025-03-27] MEDS: FLOMAX 0.4 MG PO (17:46)
[2025-03-27] MEDS: TIKOSYN 500 MCG PO (19:40)
[2025-03-27] MEDS: MELATONIN 5 MG PO (21:15)
[2025-03-27] MEDS: PRAVACHOL 20 MG PO (21:15)
[2025-03-28] VITALS (7 sets, daily range): BP systolic 110–153; BP diastolic 63–83; PULSE 84
[2025-03-28] MEDS: DELTASONE 5 MG PO (08:44)
[2025-03-28] MEDS: AZULFIDINE 500 MG PO ×2 (08:44→20:36)
[2025-03-28] MEDS: ADDERALL 10 MG PO ×2 (08:45→15:43)
[2025-03-28] MEDS: PROTONIX 40 MG PO ×2 (08:45→20:36)
[2025-03-28] MEDS: WELLBUTRIN SR (12 hour sustained release) 150 MG PO (08:45)
[2025-03-28] MEDS: ASPIR LOW (ENTERIC COATED) 81 MG PO (08:45)
[2025-03-28] MEDS: TIKOSYN 500 MCG PO ×2 (08:45→20:38)
[2025-03-28] MEDS: TOPROL XL 75 MG PO ×2 (08:45→20:36)
[2025-03-28] MEDS: ZOLOFT 100 MG PO (08:45)
[2025-03-28 10:23] LABS: Blood Urea Nitrogen 11 mg/dl (9-20); Calcium 9.0 mg/dl (8.4-10.2); Carbon Dioxide 25 mmol/L (22-30); Chloride 104 mmol/L (98-107); Estimated Creatinine Clearance 98 ml/min; Glucose 91 mg/dl (70-99); Magnesium 2.1 mg/dl (1.6-2.3); Potassium 4.0 mmol/L (3.5-5.1); Sodium 137 mmol/L (135-145); eGFR > 60.00
[2025-03-28] MEDS: TYLENOL 650 MG PO ×2 (10:35→17:16)
--- NOTE | 2025-03-28 10:38 | W.PN.CARDCBS ---
Today's Communication / Plan
-
Continue Tikosyn loading at 500 mcg twice daily
QTc monitoring
Echo today pending
Impression / Plan
-
Primary clarifier: Clinton Hernandez MD
Impression:
Ventricular tachycardia/Ventricular fibrillation status post ICD shock x 2 03/26/2025. Device interrogation in ED showed VT/VF at 250 bpm
Atrial fibrillation status post ablation 11/2021 (dofetilide discontinued at this time)
Atrial tachycardia status post EP study 03/2022
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
VT 09/2020- seen at [facility] and had CV
DC ICD ([employer]) 10/02/20
Myocardial infarction 09/2020
Nonobstructive coronary artery disease
Vasovagal syncope
Sleep apnea
GERD
Diverticular disease
Anal cancer status post chemo and radiation
Bilateral shoulder surgery 2009
Cardiac contusion approximately 30 years ago
Cardiac catheterization on 09/29/2020 ([facility]) showed nonobstructive coronary artery disease and an ejection fraction of 40 to 45%.
Echocardiogram on 09/29/2020 ([facility]) showed an EF of 55% with no wall motion abnormalities.
Lexiscan Cardiolite stress test on 10/09/23 showing a fixed defects in the basal inferolateral, basal inferior, mid inferior lateral, and mid inferior segment of the apex consistent with soft tissue attenuation which improved with prone imaging. EF
was 57%.
ECHO 03/02/24: EF 55 to 60%, mild concentric LVH, stage II diastolic dysfunction, mild MAC, trace MR, mild TR, PAP 33 mmHg
Plan:
-Presented following ICD shock for VT/VF. He has history of VT resulting in ICD placement in 2020. Prior admission following ICD shock in 2023.
-Has been monitored on telemetry here and is maintaining sinus rhythm
-Trop undetectable x3 here. Cardiac catheterization 02/2024 with nonobstructive coronary disease.
-Prior echo with NL LVEF
-started Tikosyn 500mcg Q12H on 03/27/2025 PM. QTc stable after 2 doses of med. QTc 430 ms on EKG after second dose of Tikosyn.
-Continue metoprolol
-Replete electrolyes PRN for goal K>4, Mg>2
-K4.0, mag 2.1
-Telemetry personally reviewed, normal sinus rhythm in 70s
-Check echo today 03/28/2025
-Consider eventual VT ablation as OP
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
Subjective
Date of Service: March 28, 2025
Feels well, no VT on telemetry
No palpitations, lightheadedness
Objective
Labs:
03/26/25 20:32
03/28/25 08:51
Labs
Hgb 13.9 g/dL (13.0-18.0) 03/26/25 20:32
Hct 43.4 % (39.0-52.0) 03/26/25 20:32
Plt Count 142 10^3/uL (130-400) 03/26/25 20:32
Sodium 137 mmol/L (135-145) 03/28/25 08:51
Potassium 4.0 mmol/L (3.5-5.1) 03/28/25 08:51
BUN 11 mg/dl (9-20) 03/28/25 08:51
Creatinine 0.8 mg/dL (0.7-1.3) 03/28/25 08:51
Glucose 91 mg/dl (70-99) 03/28/25 08:51
Troponins
03/26/25 03/27/25 03/27/25
20:32 03:42 06:43
Troponin I < 0.012 < 0.012 < 0.012
03/27/25
09:23
Troponin I Cancelled
Vital Signs and I&O:
Vital Signs
Temp Pulse Resp BP Pulse Ox
97.3 F 76 18 122/83 95
03/28/25 07:30 03/28/25 07:30 03/28/25 07:30 03/28/25 07:30 03/28/25 07:30
Vital Signs
Temp Pulse Resp BP Pulse Ox
97.3 F 76 18 122/83 95
03/28/25 07:30 03/28/25 07:30 03/28/25 07:30 03/28/25 07:30 03/28/25 07:30
Intake & Output
03/26/25 03/27/25 03/28/25 03/29/25
06:59 06:59 06:59 06:59
Intake Total 660 / 660
Balance 660 / 660
Physical Exam
Physical Exam
GEN: No distress, awake, Ox3
HEENT: supple, anicteric, mmm
LUNGS: CTA, no wheezes/rales
CV: Reg, S1/S2, , no murmur
ABD: soft, BS+, NT/ND
EXT: No edema
NEURO: Gross non-focal
SKIN: No rash
--- NOTE | 2025-03-28 13:02 | W.PN.HOSP.TC ---
Today's Communication/Plan
-
see plan
Assessment / Plan
Assessment / Plan
IMPRESSION:
69 y.o h/o afib s/p ablation and no longer requiring AC, VT s/p AICD, CAD status post PR, hypertension, obesity, RA, NATALIE on CPAP presenting to the emergency department status post AICD firing.
PLAN:
1. AICD Discharge - One shock terminating Vfib. Patient was asymptomatic prior to the shock. ECG showed paced rhythm. His labs were unremarkable. Troponin negative. Denies CP but states left shoulder pain since discharge.
- admit to telemetry
- trend troponin
- continue dofetilide --> dose increased per Cardiology
- continue aspirin daily
- continue metoprolol 75mg PO BID
- cardiology consult
- TTE today
2. AFIB - Has been free of AFIB since ablation
- continue rate control with metoprolol
3. NATALIE -
- CPAP HS
4. Arthritis -
Patient with unspecified inflammatory arthritis on prednisone and sulfasalzine.
Left shoulder pain, likely muscle spasm post shock
-will obtain x-ray
5. RLS - Continuing sertraline and Adderall
DVT PPX - lovenox SQ
Code status - Full code
Anticipated Discharge: Within 24 hours
Subjective/Interval History
-
Date of Service: March 28, 2025
feeling better today
no shocks overnight
Objective Data
-
Labs:
Laboratory Results
03/28/25
08:51
Sodium 137
Potassium 4.0
Chloride 104
Carbon Dioxide 25
BUN 11
Creatinine 0.8
Glucose 91
Calcium 9.0
Vital Signs:
Vital Signs
Temp Pulse Resp BP Pulse Ox
97.5 F 79 18 153/81 98
03/28/25 11:13 03/28/25 11:13 03/28/25 11:13 03/28/25 11:13 03/28/25 11:13
I&O
03/27/25 03/28/25 03/29/25
06:59 06:59 06:59
Intake Total 660 / 660
Balance 660 / 660
Review of Systems
-
History Source: Patient
All other systems: Reviewed and negative
Physical Exam
-
General: No Apparent Distress
HEENT: PERRLA
Respiratory: Clear to Auscultation; Negative Wheezes
Cardiac: Regular Rhythm and S1/S2
GI: Soft and Nontender
Musculoskeletal: No Edema and Other (can lift up/flex left shoulder but feels tight)
Skin: Warm and Dry; Negative Rash
Neuro: AO x 3
Psych: Calm
Data Reviewed
-
Diagnostic Radiology: Report Reviewed by me
Labs: Labs Reviewed by me
--- NOTE | 2025-03-28 13:05 | W.DCSUMMARY ---
Discharge Summary
Discharge Data
Date of Admission: 03/27/25
Date of Discharge: 03/29/25
-
Pending Results: No
Hospital Course
Discharging Physician : Dr. Lizette Flynn
Disposition : Home
Primary care physician : Dr. Michael Belcher
Principal Discharge diagnosis : AICD firing post Ventricular Tachycardia/ Fibrillation
Hospital Course :
Mr. Clinton Stephen is a 68 yo man with history of atrial fibrillation s/p ablation 2021, VT s/p CV and AICD placement 2020, CAD status post MD, hypertension, obesity, NATALIE on CPAP, admission 03/02-03/05/24 for AICD firing (cardiac cath without obstructive
CAD, MRI without scarring; started on Tikosyn) presents to the ER after AICD shocked. It was interrogated and patient was found to have an episode of VT VF at a rate of approximately 250 bpm. He was admitted to medicine with Cardiology consulting.
His Tikosyn dose was increased to 500mcg BID with stable QTc checked after 5 doses. TTE without changes from prior. He is discharged on higher Tikosyn dose.
Patient has outpatient follow up with Dr. Hernandez on 04/14.
Time spent on discharge was 31 minutes.
Important imaging findings :
Procedure findings :
Discharge Plan
-
Patient Disposition: Home (Routine Discharge)
Discharge Diagnosis/Procedures: AICD firing for ventricular tachycardia/fibrillation
Diet: Low Cholesterol
Activity: As tolerated
Driving Restrictions: As prior to admission
Bathing Restrictions: None
Referrals:
Michael Belcher MD [Family Provider, Internal Medicine] - in less than 1 week
Clinton Hernandez MD [Active, Cardiology] - 04/14/25 4:20 pm
Referral Note: You have an appt to see Dr. Clinton Hernandez at the [facility] on 04/14/25 at 4:20 PM, please call [phone] if you need to reschedule.
Additional Discharge Medication Instructions: Dofetilide (Tikosyn) is increased to 500 mcg (one 500 mcg or two 250 mcg caplets) twice a day
Prescriptions:
New
dofetilide 500 mcg Capsule
500 mcg PO Q12 Qty: 60 11RF
Continued
dextroamphetamine-amphetamine [Adderall XR] 20 MG capsule,extended release 24hr
20 mg PO DAILY
ropinirole 0.5 MG tablet
2 mg PO QPM
gabapentin 300 MG capsule
300 mg PO BID
tadalafil [Cialis] 5 MG tablet
5 mg PO QPM
omeprazole-sodium bicarbonate [Zegerid] 1 EACH capsule
1 cap PO BID
dextroamphetamine-amphetamine 10 MG tablet
10 mg PO BID
melatonin 3 mg Tablet
5 mg PO HS
bupropion HCl [Wellbutrin SR] 150 mg Tablet Sustained-Release 12 Hr
150 mg PO DAILY
sulfasalazine 500 mg Tablet
1 g PO BID
sertraline [Zoloft] 100 mg Tablet
100 mg PO DAILY
prednisone 5 mg Tablet
10 mg PO DAILY
aspirin [Pauly Low Dose Aspirin] 81 mg Tablet,Delayed Release (Dr/Ec)
81 mg PO DAILY
pravastatin 20 mg Tablet
20 mg PO HS
metoprolol succinate [Toprol XL] 50 mg tablet extended release 24 hr
50 mg PO BID Qty: 1 0RF
Rx Instructions:
Please take 1 50mg tablet with 1 25 mg tablet twice daily for total of 75mg BID.
metoprolol succinate [Toprol XL] 25 mg tablet extended release 24 hr
25 mg PO BID Qty: 60 5RF
Rx Instructions:
Please take 1 50mg tablet with 1 25 mg tablet twice daily for total of 75mg BID.
silodosin 4 mg Capsule
4 mg PO DAILY
Rx Instructions:
pt unsure of dosage for this medication
Discontinued
dofetilide 250 mcg Capsule
250 mcg PO Q12H Qty: 60 11RF
Discharge Orders:
Discharge Patient (As Directed); Ordered 03/29/25
Ordered By: Lizette Flynn
Discharge Date and Time
Discharge Date/Time: 03/29/25 13:00
Print Language: SPANISH
--- NOTE | 2025-03-28 13:14 | CM ---
Chart reviewed. Met with pt bedside. 2D-echo and ENE planned for today.
Plan: Home with no needs
[2025-03-28] MEDS: LOVENOX 40 MG SC (17:16)
[2025-03-28] MEDS: FLOMAX 0.4 MG PO (17:16)
[2025-03-28] MEDS: REQUIP 2 MG PO (17:16)
[2025-03-28] MEDS: MELATONIN 5 MG PO (21:37)
[2025-03-28] MEDS: PRAVACHOL 20 MG PO (21:37)
[2025-03-29 03:04] VITALS: BP 110/74
[2025-03-29 03:40] VITALS: PULSE 81
[2025-03-29 04:04] VITALS: BP 110/74
[2025-03-29 07:15] VITALS: BP 121/82
[2025-03-29] MEDS: WELLBUTRIN SR (12 hour sustained release) 150 MG PO (08:58)
[2025-03-29] MEDS: TOPROL XL 75 MG PO (08:59)
[2025-03-29] MEDS: ADDERALL 10 MG PO (08:59)
[2025-03-29] MEDS: ASPIR LOW (ENTERIC COATED) 81 MG PO (08:59)
[2025-03-29] MEDS: DELTASONE 5 MG PO (08:59)
[2025-03-29] MEDS: TIKOSYN 500 MCG PO (09:00)
[2025-03-29] MEDS: ZOLOFT 100 MG PO (09:01)
[2025-03-29] MEDS: PROTONIX PO (09:01)
[2025-03-29] MEDS: AZULFIDINE 500 MG PO (09:01)
[2025-03-29] MEDS: FLUSH (NSS) 1 FLUSH IV (09:02)
[2025-03-29 09:41] LABS: Blood Urea Nitrogen 11 mg/dl (9-20); Calcium 9.0 mg/dl (8.4-10.2); Carbon Dioxide 25 mmol/L (22-30); Chloride 106 mmol/L (98-107); Estimated Creatinine Clearance 98 ml/min; Glucose 88 mg/dl (70-99); Magnesium 2.1 mg/dl (1.6-2.3); Potassium 4.0 mmol/L (3.5-5.1); Sodium 136 mmol/L (135-145); eGFR > 60.00
--- NOTE | 2025-03-29 10:41 | W.PN.HOSP.TC ---
Today's Communication/Plan
-
plan for discharge after seen by Cardiology
Assessment / Plan
Assessment / Plan
IMPRESSION:
69 y.o h/o afib s/p ablation and no longer requiring AC, VT s/p AICD, CAD status post ND, hypertension, obesity, RA, NATALIE on CPAP presenting to the emergency department status post AICD firing.
TTE 03/28/25
SUMMARY
1. Normal left ventricular size with low normal LV systolic function without regional wall motion abnormalities. Estimated left ventricular ejection fraction is 50 to 55% by Corona's method. Mild concentric left ventricular hypertrophy.
2. Normal right ventricular size and systolic function. ICD wire seen in right ventricle.
3. No significant valvular abnormalities.
4. Dilated aortic root. Sinus of valsalva measures 3.9 cm, sinotubular junction measures 3.4 cm. Dilated ascending aorta, measuring 4.0 cm.
5. No pericardial effusion.
6. Compared to prior echocardiogram from 2023, no significant changes.
PLAN:
1. AICD Discharge - One shock terminating Vfib. Patient was asymptomatic prior to the shock. ECG showed paced rhythm. His labs were unremarkable. Troponin negative. Denies CP but states left shoulder pain since discharge.
- admit to telemetry
- trend troponin
- continue dofetilide --> dose increased per Cardiology now s/p 5 doses and QTc OK
- continue aspirin daily
- continue metoprolol 75mg PO BID
- cardiology consult
-s/p TTE without changes
-likely OK for DC today, follow up Cardiology recs
2. AFIB - Has been free of AFIB since ablation
- continue rate control with metoprolol
Left shoulder muscle spasm
-resolved, x-ray with chronic changes
3. NATALIE -
- CPAP HS
4. Arthritis -
Patient with unspecified inflammatory arthritis on prednisone and sulfasalzine.
Left shoulder pain, likely muscle spasm post shock
-will obtain x-ray
5. RLS - Continuing sertraline and Adderall
DVT PPX - lovenox SQ
Code status - Full code
Anticipated Discharge: Today
Subjective/Interval History
-
Date of Service: March 29, 2025
feeling well
hoping to go home
left shoulder pain resolved now
Objective Data
-
Labs:
Laboratory Results
03/29/25
08:03
Sodium 136
Potassium 4.0
Chloride 106
Carbon Dioxide 25
BUN 11
Creatinine 0.8
Glucose 88
Calcium 9.0
Vital Signs:
Vital Signs
Temp Pulse Resp BP Pulse Ox
97.5 F 82 16 121/82 98
03/29/25 07:15 03/29/25 08:59 03/29/25 07:15 03/29/25 08:59 03/29/25 08:55
I&O
03/28/25 03/29/25 03/30/25
06:59 06:59 06:59
Intake Total 660 / 660 760 / 760
Balance 660 / 660 760 / 760
Review of Systems
-
History Source: Patient
All other systems: Reviewed and negative
Physical Exam
-
General: No Apparent Distress
HEENT: PERRLA
Respiratory: Clear to Auscultation; Negative Wheezes
Cardiac: Regular Rhythm and S1/S2
GI: Soft and Nontender
Musculoskeletal: No Edema
Skin: Warm and Dry; Negative Rash
Neuro: AO x 3
Psych: Calm
--- NOTE | 2025-03-29 11:20 | W.PN.CARDCBS ---
Addendum entered and electronically signed by Andree Marquis DO 03/29/25 12:09:
I saw and examined the patient.
The Stained Glass Joiner's note was reviewed and I agree with the note.
Comment: Patient seen and examined. Chart reviewed. He is feeling well and anxious for discharge. Offers no complaints.
General: No acute distress, AAOX3
Neck: Negative JVD
Heart: Regular, positive S1/S2, No murmur. Device site intact
Lungs: CTA b/l, negative wheezes/rales/rhonchi
Ext: no edema
Neuro: nonfocal
Patient presented following ICD shock for VT/VF with history of VT resulting in ICD placement in 2020. He was seen by his stone paver, Dr. Dany Hernandez and started on Tikosyn. Tikosyn was titrated to 500 mcg every 12 hours with stable QTc. He
completed Tikosyn load protocol. He is in sinus rhythm this morning with no further atrial or ventricular arrhythmias. He is not chronically anticoagulated per prior discussions with his stone paver. Plan for discharge home today and outpatient
follow-up in the office with Dr. Hernandez April 14.
Original Note:
Today's Communication / Plan
-
D/C to home on Tikosyn 500 mcg q 12 hours
Impression / Plan
-
PCP: Dr. medhat Martel
Primary stone paver: Clinton Hernandez MD
Impression:
Admitted with ventricular tachycardia/Ventricular fibrillation status post ICD shock x 2 03/26/2025
Device interrogation in ED showed VT/VF at 250 bpm
Atrial fibrillation status post ablation 11/2021 (dofetilide discontinued at this time)
Not chronically on OAC due to lack of symptomatic Afib and patient choice
Atrial tachycardia status post EP study 03/2022
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
VT 09/2020- seen at [facility] and had CV
DC ICD ([employer]) 10/02/20
Myocardial infarction 09/2020
Recurrent VT 02/2024
Tikosyn restarted during admission 02/2024
Nonobstructive coronary artery disease
Vasovagal syncope
Sleep apnea
GERD
Diverticular disease
Anal cancer status post chemo and radiation
Bilateral shoulder surgery 2009
Cardiac contusion approximately 30 years ago
Cardiac catheterization on 09/29/2020 ([facility]) showed nonobstructive coronary artery disease and an ejection fraction of 40 to 45%.
Lexiscan Cardiolite stress test on 10/09/23 showing a fixed defects in the basal inferolateral, basal inferior, mid inferior lateral, and mid inferior segment of the apex consistent with soft tissue attenuation which improved with prone imaging. EF
was 57%.
Echom on 09/29/2020 ([facility]) showed an EF of 55% with no wall motion abnormalities.
ECHO 03/02/24: EF 55 to 60%, mild concentric LVH, stage II diastolic dysfunction, mild MAC, trace MR, mild TR, PAP 33 mmHg
Echo 03/29/25: EF 50-55%, normal RV size and function, no significant valve disease, dilated aortic root. Sinus of Valsalva measures 3.9 cm, sinotubular junction measures 3.4 cm. Dilated ascending aorta, measuring 4.0 cm.
Plan:
-Presented following ICD shock for VT/VF. He has history of VT resulting in ICD placement in 2020. Prior admission following ICD shock in 2023.
-Patient had Tikosyn restarted during his 02/2024 admission for VT and given recurrent VT this admission the patient was admitted and Tikosyn dose increased to 500 mcg q 12 hours.
-5th dose of Tikosyn 500 mcg q 12 hours given 03/29/25 AM and QTc stable at 453 ms on ECG 2 hours later.
-Recommend patient continue Tikosyn 500 mcg q 12 hours and will recheck ECG when we see patient in the office in about 2 weeks.
-Patient also with paroxysmal Afib and has been in SR this admission.
-Patient is not chronically on OAC due to lack of recurrent symptomatic Afib and patient prefers to monitor for recurrent Afib via smart watch.
-Outpatient dose of Toprol XL 75 mg BID has been continued
-D/C to home 03/29/25,
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
Subjective
Date of Service: March 29, 2025
He feels well and wants to go home
Objective
Labs:
03/26/25 20:32
03/29/25 08:03
Labs
Hgb 13.9 g/dL (13.0-18.0) 03/26/25 20:32
Hct 43.4 % (39.0-52.0) 03/26/25 20:32
Plt Count 142 10^3/uL (130-400) 03/26/25 20:32
Sodium 136 mmol/L (135-145) 03/29/25 08:03
Potassium 4.0 mmol/L (3.5-5.1) 03/29/25 08:03
BUN 11 mg/dl (9-20) 03/29/25 08:03
Creatinine 0.8 mg/dL (0.7-1.3) 03/29/25 08:03
Glucose 88 mg/dl (70-99) 03/29/25 08:03
Troponins
03/26/25 03/27/25 03/27/25
20:32 03:42 06:43
Troponin I < 0.012 < 0.012 < 0.012
03/27/25
09:23
Troponin I Cancelled
Vital Signs and I&O:
Vital Signs
Temp Pulse Resp BP Pulse Ox
97.5 F 82 16 121/82 98
03/29/25 07:15 03/29/25 08:59 03/29/25 07:15 03/29/25 08:59 03/29/25 08:55
Vital Signs
Temp Pulse Resp BP Pulse Ox
97.5 F 82 16 121/82 98
03/29/25 07:15 03/29/25 08:59 03/29/25 07:15 03/29/25 08:59 03/29/25 08:55
Intake & Output
03/27/25 03/28/25 03/29/25 03/30/25
06:59 06:59 06:59 06:59
Intake Total 660 / 660 760 / 760
Balance 660 / 660 760 / 760
Physical Exam
Physical Exam
GEN: AAOx3
LUNGS: RA. No wheeze
CV: SR on tele.
[2025-03-29 11:30] VITALS: BP 120/81
--- NOTE | 2025-03-29 12:32 | W.DS.TRANS ---
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
-
Discharge Instructions:
Discharge Diagnosis/Procedures AICD firing for ventricular tachycardia/
fibrillation
Diet Low Cholesterol
Activity As tolerated
Driving Restrictions As prior to admission
Bathing Restrictions None
Instructions:
Stand-Alone Forms:
Changes to Home Medications: Yes
Discharge Medications:
DC Medications w/original date entered in [facility]
dextroamphetamine-amphetamine ER 20 mg 24hr capsule,extend release (Adderall XR) 20 mg PO DAILY Mental Health/Anxiety 12/03/21
gabapentin 300 mg capsule 300 mg PO BID Pain 12/03/21
omeprazole 40 mg-sodium bicarbonate 1.1 gram capsule (Zegerid) 1 cap PO BID Gastrointestinal Issue 12/03/21
ropinirole 0.5 mg tablet 2 mg PO QPM Neurological Condition 12/03/21
tadalafil 5 mg tablet (Cialis) 5 mg PO QPM Urinary Issue 12/03/21
dextroamphetamine-amphetamine 10 mg tablet 10 mg PO BID Mental Health/Anxiety 12/11/21
melatonin 3 mg tablet 5 mg PO HS Sleep 04/11/22
aspirin 81 mg tablet,delayed release (Pauly Low Dose Aspirin) 81 mg PO DAILY Blood Clot Prevention/Tx 03/02/24
bupropion HCl 150 mg tablet,12 hr sustained-release (Wellbutrin SR) 150 mg PO DAILY Mental Health/Anxiety 03/02/24
prednisone 5 mg tablet 10 mg PO DAILY Anti-Inflammatory 03/02/24
sertraline 100 mg tablet (Zoloft) 100 mg PO DAILY Mental Health/Anxiety 03/02/24
sulfasalazine 500 mg tablet 1 g PO BID Antirheumatic, 03/02/24
pravastatin 20 mg tablet 20 mg PO HS High Cholesterol 03/03/24
metoprolol succinate 25 mg tablet,extended release 24 hr (Toprol XL) 25 mg PO BID #60 tabs 03/05/24
metoprolol succinate 50 mg tablet,extended release 24 hr (Toprol XL) 50 mg PO BID #1 tab 03/05/24
silodosin 4 mg capsule 4 mg PO DAILY BPH 03/27/25
dofetilide 500 mcg capsule 500 mcg PO Q12 Arrhythmia #60 caps 03/28/25
Home Medication Changes
Dofetilide (Tikosyn) is increased to 500 mcg (one 500 mcg or two 250 mcg caplets) twice a day
Pending Results: No
== END 2025-03-29 13:00 | disposition home or self-care (01) | DRG 310 ==
LOC: 4 EAST ACU 07:12
PROVIDERS: Emergency Medicine; ADMITTING PHYSICIAN Internal Medicine; ATTENDING PHYSICIAN Student in an Organized Health Care Education/Training Program; CONSULT PHYSICIAN Internal Medicine Cardiovascular Disease; EMERGENCY PHYSICIAN Student in an Organized Health Care Education/Training Program; FAMILY PHYSICIAN Internal Medicine
PROC: 5A09357 Assistance with Respiratory Ventilation, Less than 24 Consecutive Hours, Continuous Positive Airway Pressure (ICD-10-PCS; 2025-03-27)
DX: I49.01 Ventricular fibrillation (principal); I47.20 Ventricular tachycardia, unspecified; Z95.810 Presence of automatic (implantable) cardiac defibrillator; G47.33 Obstructive sleep apnea (adult) (pediatric); I25.2 Old myocardial infarction; I25.10 Atherosclerotic heart disease of native coronary artery without angina pectoris; E66.9 Obesity, unspecified; I11.9 Hypertensive heart disease without heart failure; I48.0 Paroxysmal atrial fibrillation; Z88.1 Allergy status to other antibiotic agents; Z79.82 Long term (current) use of aspirin; Z79.899 Other long term (current) drug therapy; Z85.048 Personal history of other malignant neoplasm of rectum, rectosigmoid junction, and anus; Z92.21 Personal history of antineoplastic chemotherapy; Z92.3 Personal history of irradiation; I49.3 Ventricular premature depolarization; K21.9 Gastro-esophageal reflux disease without esophagitis; Z86.79 Personal history of other diseases of the circulatory system
CPT/HCPCS: 71046; 73030; 80048; 80053; 83735; 84484; 85025; 93005; 93289; 93306; 94660; 99285

== ENCOUNTER 2025-04-29 05:25 | Inpatient (IN) | payer MEDICARE, OTHER, SELFPAY ==
[2025-04-29 03:09] VITALS: BP 123/84
--- NOTE | 2025-04-29 03:40 | ED.GENMED ---
History of Present Illness
<Eileen Schultz PA-C - Last Filed: 04/29/25 05:39>
General
Chief Complaint: AICD Problem
Time Seen by Provider: 04/29/25 03:20
History of Present Illness
History of Present Illness:
see MDM
Past History
<Eileen Schultz PA-C - Last Filed: 04/29/25 05:39>
Past History
ED Past Medical History: Arrthythmia
ED Past Surgical History: Cardiac
Social History
Tobacco: Non-smoker
Alcohol: Occasional
Drug: None
Personal:
Living: with family
Phy Exam
<Eileen Schultz PA-C - Last Filed: 04/29/25 05:39>
Physical Exam
Physical Exam:
see mdm
Course
<Eileen Schultz PA-C - Last Filed: 04/29/25 05:39>
Orders/Labs/Results
Orders:
Orders
04/29/25 03:18
Electrocardiogram (*1) Urgent
Reason for Study: Other
Other Reason for Exam: Respiratory Distress
Cardiac Monitoring- Treatment ONCE
EKG- Treatment ONCE
IV Insert/Care/Rem.- Treatment PRN
CR Chest - 2 Views Urgent
Comment:
Reason For Exam: respiratory distress
O2 Therapy [RESP] Urgent
Titrate/Wean O2 to maintain O2 sat greater than (%): 93
Special Instructions: TO MAINTAIN CONTINUOUS O2 SATS >/= 93%
Pulse Ox/cont/shift [RESP] Urgent
Quantity: 1
Special Instructions: continuous pulse ox
04/29/25 03:31
pacemaker [Interrogate Pacemaker- Treatment] ONCE
04/29/25 03:44
Complete Blood Count/With Diff Urgent
Comprehensive Metabolic Panel Urgent
Magnesium Urgent
NT-proBNP Urgent
Troponin I Urgent
04/29/25 05:16
Admit/Transfer Patient As Directed
Co-Sign Provider:
Level of Care: Inpatient admission
Assign to:: IVU
Physician / Group: Tristan
Diagnosis: VF
Reason for Hospitalization: VF
Expected length of stay greater than two midnights?: Yes
ELOS- Estimated Length of Stay in days: 2
I certify the patient meets the requirements for IP care: Yes
04/29/25 05:17
PRN Pain Medication Management As Directed
May give lesser potent ordered pain med per pt: Yes
preference::
Protocol:: Medication orders for pain may be administered in a
manner that supports deferring to patient preference
when the pt is:
- Requesting an ordered lesser potent pain medication.
Least to most potent pain medications are defined
as: acetaminophen < NSAID < tramadol < opioids
(morphine, oxycodone, hydromorphone).
- Requesting a lesser dose of the same medication IF
ORDERED.
- Requesting a less intrusive route of administration
if both routes are prescribed by the provider (PO <
IV).
04/29/25 05:18
Code Status As Directed
Resuscitation Status: Full Code
Abnormal Lab Results
04/29/25
03:44
MCH 26.4 L pg
(27.0-31.0)
MCHC 30.9 L g/dL
(33.0-37.0)
RDW 18.6 H %
(11.5-14.5)
Absolute Monos (auto) 1.1 H 10^3/uL
(0.1-0.6)
Lymphocytes % 19.6 L %
(20.5-51.1)
Monocytes % 13.1 H %
(1.7-9.3)
Glucose 102 H mg/dl
(70-99)
04/29/25 03:44
04/29/25 03:44
Vital Signs
Initial and Last Documented VS:
Initial Vital Signs
Temp Pulse Resp BP Pulse Ox
36.6 C 94 20 123/84 96
04/29/25 03:09 04/29/25 03:09 04/29/25 03:09 04/29/25 03:09 04/29/25 03:09
Last Documented Vital Signs
Temp Pulse Resp BP Pulse Ox
36.6 C 91 14 103/82 96
04/29/25 03:09 04/29/25 03:40 04/29/25 03:40 04/29/25 03:42 04/29/25 03:40
<Narayan Ramirez, - Last Filed: 04/29/25 05:14>
Orders/Labs/Results
Orders:
Orders
04/29/25 03:18
Electrocardiogram (*1) Urgent
Reason for Study: Other
Other Reason for Exam: Respiratory Distress
Cardiac Monitoring- Treatment ONCE
EKG- Treatment ONCE
IV Insert/Care/Rem.- Treatment PRN
CR Chest - 2 Views Urgent
Comment:
Reason For Exam: respiratory distress
O2 Therapy [RESP] Urgent
Titrate/Wean O2 to maintain O2 sat greater than (%): 93
Special Instructions: TO MAINTAIN CONTINUOUS O2 SATS >/= 93%
Pulse Ox/cont/shift [RESP] Urgent
Quantity: 1
Special Instructions: continuous pulse ox
04/29/25 03:31
pacemaker [Interrogate Pacemaker- Treatment] ONCE
04/29/25 03:44
Complete Blood Count/With Diff Urgent
Comprehensive Metabolic Panel Urgent
Magnesium Urgent
NT-proBNP Urgent
Troponin I Urgent
04/29/25 05:16
Admit/Transfer Patient As Directed
Co-Sign Provider:
Level of Care: Inpatient admission
Assign to:: IVU
Physician / Group: Tristan
Diagnosis: VF
Reason for Hospitalization: VF
Expected length of stay greater than two midnights?: Yes
ELOS- Estimated Length of Stay in days: 2
I certify the patient meets the requirements for IP care: Yes
04/29/25 05:17
PRN Pain Medication Management As Directed
May give lesser potent ordered pain med per pt: Yes
preference::
Protocol:: Medication orders for pain may be administered in a
manner that supports deferring to patient preference
when the pt is:
- Requesting an ordered lesser potent pain medication.
Least to most potent pain medications are defined
as: acetaminophen < NSAID < tramadol < opioids
(morphine, oxycodone, hydromorphone).
- Requesting a lesser dose of the same medication IF
ORDERED.
- Requesting a less intrusive route of administration
if both routes are prescribed by the provider (PO <
IV).
04/29/25 05:18
Code Status As Directed
Resuscitation Status: Full Code
Abnormal Lab Results
04/29/25
03:44
MCH 26.4 L pg
(27.0-31.0)
MCHC 30.9 L g/dL
(33.0-37.0)
RDW 18.6 H %
(11.5-14.5)
Absolute Monos (auto) 1.1 H 10^3/uL
(0.1-0.6)
Lymphocytes % 19.6 L %
(20.5-51.1)
Monocytes % 13.1 H %
(1.7-9.3)
Glucose 102 H mg/dl
(70-99)
04/29/25 03:44
04/29/25 03:44
Vital Signs
Initial and Last Documented VS:
Initial Vital Signs
Temp Pulse Resp BP Pulse Ox
36.6 C 94 20 123/84 96
04/29/25 03:09 04/29/25 03:09 04/29/25 03:09 04/29/25 03:09 04/29/25 03:09
Last Documented Vital Signs
Temp Pulse Resp BP Pulse Ox
36.6 C 91 14 103/82 96
04/29/25 03:09 04/29/25 03:40 04/29/25 03:40 04/29/25 03:42 04/29/25 03:40
<Eileen Schultz PA-C - Last Filed: 04/29/25 05:39>
MDM/Problems Addressed
Differential Diagnosis Includes:
see MDM
MDM/Problems Addressed:
Note:
CHIEF COMPLAINT(S)
Device discharge during sleep.
HISTORY OF PRESENT ILLNESS
The patient is a 69-year-old male with a history of ventricular tachycardia and ventricular fibrillation status post an ICD who experienced a device discharge approximately at 1:45 AM while sleeping. The patient reports this has occurred one time
tonight and previous similar episodes have happened four times. The last similar episode was on March 26, when the patient was admitted to the hospital.
During the previous hospitalization, the patients dose of Ticagrelor (referred to as teakison) was increased to 500 mg in the morning and 500 mg at night. The patient states they took their medication a couple of hours ahead due to an early bedtime
but has not missed any doses. They report feeling extremely tired since the last hospital discharge but deny any new shortness of breath, palpitations, chest discomfort, or dizziness.
The patient has a history of two cardiac ablations for atrial fibrillation, which resolved the arrhythmia in the upper chamber, and is now experiencing issues in the lower chamber. During the hospitalization, the patient was recommended further
ablation. The patient denies taking blood thinners other than aspirin.
he was told that if this happened again, he would need ablation
PAST MEDICAL AND SURGICAL HISTORY
History of ventricular fibrillation and ventricular tachycardia.
History of atrial fibrillation treated with two ablation procedures.
MEDICATIONS
Ticagrelor 1000 mg morning and 1000 mg night.
Aspirin.
REVIEW OF SYSTEMS
- Cardiovascular: Previous episodes of ventricular tachycardia and fibrillation; currently denies palpitations or irregular heartbeat.
- General: Reports extreme tiredness since previous hospitalization.
- Neurological: No dizziness or light-headedness reported.
- Respiratory: Denies current shortness of breath.
PHYSICAL EXAM
- Nursing notes reviewed and vital signs reviewed.
GENERAL: Alert , in no apparent distress
EYE: pupils equal and reactive
NECK: Supple
ENT: o/p clr, mmm.
CARDIAC: Regular rate and rhythm .
LUNGS: Clear breath sounds bilaterally, no acute respiratory distress, no wheezes/rales/rhonchi
ABDOMEN: Soft, without focal tenderness, no r/g, no cvat, normal bowel sounds
NEUROLOGICAL: Alert and oriented, no focal neuro deficits
SKIN: Warm and dry, skin intact.
MUSCULOSKELETAL: No edema, well perfused. neg iain's sign
PSYCH: Normal and appropriate interaction.
- Heart rhythm and sinus rhythm noted.
PLAN
Interrogate the pacemaker to analyze recent events.
Review electrolytes and conduct further cardiac monitoring.
Consider further ablation as previously suggested if ventricular issues continue.
Encourage consistent medication adherence and follow-ups with the air conditioning engineer.
DIFFERENTIAL DIAGNOSIS
The Differential Diagnosis includes, in no particular order and is not limited to:
1. Ventricular tachycardia
2. Ventricular fibrillation
3. Pacemaker malfunction
4. Electrolyte imbalance
5. Ischemic heart disease
6. Arrhythmogenic right ventricular cardiomyopathy
7. Cardiac sarcoidosis
8. Hypertrophic cardiomyopathy
9. Myocardial infarction
10. Medication side effects
04/29/25 - 04:37
69-year-old male with history of an ICD presents after a ICD discharge at 1:45 AM while he was asleep.
Patient is asymptomatic currently, he had no preceding symptoms and no post chest pain. Patient does not feel short of breath. He is compliant with his Tikosyn
Which was increased last month after AICD fired. He was told that if he continued to have A-fib episodes that he would require an ablation.
According to the patient's pacer which was interrogated, the patient experienced a ventricular fibrillation (V-Fib) episode, which was effectively treated with a 41 Joule shock from the defibrillator. There were no electrolyte imbalances detected in
the blood work. The patient will be admitted to the hospital for further observation and to consult with Dr. Edwards, or a development team lead, regarding the treatment plan. The defibrillator performed correctly during the incident. This episode is
attributed to an electrical malfunction rather than coronary artery disease, as prior evaluations indicated the coronaries are in normal condition. The patient expressed concern about the possibility of future episodes and the logistics of upcoming
consultations or procedures. There is no current indication of substance use contributing to the event. The plan is for observation, and a consult will be placed to decide whether surgical intervention or other approaches might be necessary.
Patient's EKG shows T wave inversions in 1 and aVL which are unchanged from previous, he has a leftward axis, he also is in normal sinus rhythm 89 bpm
<Eileen Schultz PA-C - Last Filed: 04/29/25 05:39>
*Pulse Oximetry
SaO2: 96
Oxygen Mode of Delivery: Room air
Patient hypoxic: no (96)
*Critical Care Note
Total Time (30-74mins, 75-104mins- exclusive of procedures): Not Applicable
ED Attending Note
<Eileen Schultz PA-C - Last Filed: 04/29/25 05:39>
-
Portions of this chart may have been created with voice recognition software.� Occasional wrong word or��sound alike� substitutions may have occurred due to the inherent limitations of voice recognition software.
<Narayan Ramirez, DO - Last Filed: 04/29/25 05:14>
ED Attending Note
Patient seen and examined by attending physician: Yes
I performed the substantive portion of visit, reviewed & personally made and approve the management plan that is documented in note by myself or MEÑO.: Yes
ED Attending Note:
69-year-old male presents after his pacemaker fired. He sees Dr. Hernandez. He has been resting comfortably in the bed. He is in no acute distress while here. Patient was seen in conjunction with the PA. I reviewed and agree with her history
and treatment plan. My independent physical exam patient awake alert and oriented x 3 in no acute distress. Heart is regular rate and rhythm. He is perfusing nicely. Skin is warm and dry. Normal cap refill. No edema present. Patient to be
admitted, cardiology to be consulted.
Discharge Plan
Departure
Patient Disposition: Admit
Date of Disposition: 04/29/25
Time of Disposition: 04:28
Admit to: Telemetry
Presentation/result/management discussed w/ accepting MD/DO: Hospitalist
Condition: Fair
Covid-19: Not Applicable
Discharge Problem:
Ventricular fibrillation, AICD discharge
Interventions
Interventions:
*Risk Screen - Suicide Last Done: 04/29/25 03:09
*General Assessment Last Done: 04/29/25 03:09
*Neglect/Abuse Screening Last Done: 04/29/25 03:09
*ED- Fall Risk Assessment Last Done: 04/29/25 03:09
*ED COVID-19 Vaccine History Last Done: 04/29/25 03:09
*ED Influenza Vaccine History Last Done: 04/29/25 03:09
ED- Pulmonary Assessment Last Done: 04/29/25 03:15
ED- Cardiac Assessment Last Done: 04/29/25 03:15
[2025-04-29 03:41] VITALS: BMI 30.9
[2025-04-29 03:42] VITALS: BP 103/82
[2025-04-29 03:56] LABS: Hematocrit 48.5 % (39.0-52.0); Hemoglobin 15.0 g/dL (13.0-18.0); Mean Corp Hgb Conc. 30.9 g/dL (33.0-37.0); Mean Corpuscular Volume 85.2 fL (80.0-94.0); Nucleated Red Blood Cells % 0 % (-); Platelet Count 148 10^3/uL (130-400); Red Cell Dist. Width 18.6 % (11.5-14.5)
[2025-04-29 04:00] VITALS: BP 115/78
[2025-04-29 04:25] LABS: ALT (SGPT) 31 U/L (0-50); AST (SGOT) 23 U/L (17-59); Albumin 3.9 g/dl (3.5-5.0); Alkaline Phosphatase 46 U/L (38-126); Blood Urea Nitrogen 18 mg/dl (9-20); Calcium 8.8 mg/dl (8.4-10.2); Carbon Dioxide 23 mmol/L (22-30); Chloride 106 mmol/L (98-107); Estimated Creatinine Clearance 99 ml/min; Glucose 102 mg/dl (70-99); Magnesium 2.2 mg/dl (1.6-2.3); Potassium 3.6 mmol/L (3.5-5.1); Sodium 137 mmol/L (135-145); Total Protein 6.7 g/dl (6.3-8.2); eGFR > 60.00
[2025-04-29 04:36] LABS: Troponin I < 0.012 ng/ml
--- NOTE | 2025-04-29 05:20 | HPS.HSE ---
Family Physician
-
Family Physician: Michael Schwratz
Chief Complaint
-
AICD Fire
History of Present Illness
Patient is a 69y M with PMH significant for VT / VF, paroxysmal A-Fib and ASCVD who presents to ED for evaluation after AICD firing this evening. Patient was admitted to one month ago after a similar occurrence. At that time his Tikosyn dose
was titrated up to 500mg q12 and he has been compliant with this since that time. Patient states that he felt well this evening. He went to bed around 9PM. He woke with a start around 1:45 AM feeling as if he had been kicked in the chest.
Symptoms identical to prior episode of AICD firing. Patient felt fairly well after a short time. He denies any dizziness, dyspnea, lightheadedness, nausea, etc. He presented to the ED for further evaluation.
Medical History
Past Medical History
Past Medical History: Reports Other
Additional Past Medical History:
Ventricular tachycardia/Ventricular fibrillation status post ICD shock x 2
Atrial fibrillation status post ablation 11/2021 (dofetilide discontinued at this time)
Atrial tachycardia status post EP study 03/2022
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
VT 09/2020- seen at [facility] and had CV
DC ICD ([employer]) 10/02/20
Myocardial infarction 09/2020
ASCVD
Vasovagal syncope
Sleep apnea
Narcolepsy
GERD
Diverticular disease
Anal cancer status post chemo and radiation
Bilateral shoulder surgery 2009
Cardiac contusion approximately 30 years ago
Unspecified Inflammatory Polyarthropathy
Hypogonadism
ADD
Anxiety / Depression
BPH
Past Surgical History: Reports Other
Additional Past Surgical History:
T&A
AICD Placement
A-Fib Ablation
Bilateral Shoulder Surgeries
Social History
Tobacco: Non-smoker
Alcohol: None
Drug: None
Family History
Family History: Not pertinent
Allergies / Home Medications
Allergies reflects when Allergies were last updated in [facility].
Home Medications with original date entered in [facility]
Allergy/Medication List:
Allergies
Allergy/AdvReac Type Severity Reaction Status Date / Time
shrimp Allergy Unknown facial Verified 04/29/25 03:08
swelling
clindamycin Allergy Facial Verified 04/29/25 03:08
Swelling
dog dander Allergy runny nose Verified 04/29/25 03:08
modafinil (From [facility]) Allergy Pharmacy Verified 04/29/25 03:08
to Review
Home Medications
dextroamphetamine-amphetamine ER 20 mg 24hr capsule,extend release (Adderall XR) 20 mg PO DAILY Mental Health/Anxiety 12/03/21
gabapentin 300 mg capsule 300 mg PO BID Pain 12/03/21
omeprazole 40 mg-sodium bicarbonate 1.1 gram capsule (Zegerid) 1 cap PO BID Gastrointestinal Issue 12/03/21
ropinirole 0.5 mg tablet 2 mg PO QPM Neurological Condition 12/03/21
tadalafil 5 mg tablet (Cialis) 5 mg PO QPM Urinary Issue 12/03/21
dextroamphetamine-amphetamine 10 mg tablet 10 mg PO BID Mental Health/Anxiety 12/11/21
melatonin 3 mg tablet 5 mg PO HS Sleep 04/11/22
aspirin 81 mg tablet,delayed release (Pauly Low Dose Aspirin) 81 mg PO DAILY Blood Clot Prevention/Tx 03/02/24
bupropion HCl 150 mg tablet,12 hr sustained-release (Wellbutrin SR) 150 mg PO DAILY Mental Health/Anxiety 03/02/24
prednisone 5 mg tablet 10 mg PO DAILY Anti-Inflammatory 03/02/24
sertraline 100 mg tablet (Zoloft) 100 mg PO DAILY Mental Health/Anxiety 03/02/24
sulfasalazine 500 mg tablet 1 g PO BID Antirheumatic, 03/02/24
pravastatin 20 mg tablet 20 mg PO HS High Cholesterol 03/03/24
metoprolol succinate 25 mg tablet,extended release 24 hr (Toprol XL) 25 mg PO BID #60 tabs 03/05/24
metoprolol succinate 50 mg tablet,extended release 24 hr (Toprol XL) 50 mg PO BID #1 tab 03/05/24
silodosin 4 mg capsule 4 mg PO DAILY BPH 03/27/25
dofetilide 500 mcg capsule 500 mcg PO Q12 Arrhythmia #60 caps 03/28/25
Review of Systems
-
History Source: Patient
A 12 point ROS was completed and negative except as noted: Yes
Constitutional: Denies Fever or Chills
Respiratory: Denies Cough or Trouble Breathing
Cardiac: Denies Chest Pain or Palpitations
Abdomen/GI: Denies Abdominal Pain, Nausea, Vomiting or Diarrhea
: Denies Dysuria or Frequency
Musculoskeletal: Denies Joint Pain or Edema
Neurological: Denies Dizzy or Headache
Physical Exam
Vital Signs
Vital Signs
Temp Pulse Resp BP Pulse Ox
97.9 F 91 14 103/82 96
04/29/25 03:09 04/29/25 03:40 04/29/25 03:40 04/29/25 03:42 04/29/25 03:40
Physical Exam
General: Other (69y M in no acute distress.)
HEENT: Moist mucous membranes
Respiratory: Clear; No Wheezes, Rales or Rhonchi
Cardiac: S1/S2 and Regular Rhythm
GI: Soft, Non Tender, Non Distended and Normal Bowel Sounds
Musculoskeletal: No Clubbing, No Cyanosis and No Edema
Neuro: AO x 3
Laboratory Results
-
04/29/25 03:44
04/29/25 03:44
Laboratory Results
Total Bilirubin 0.5 mg/dl (0.2-1.3) 04/29/25 03:44
AST 23 U/L (17-59) 04/29/25 03:44
ALT 31 U/L (0-50) 04/29/25 03:44
Alkaline Phosphatase 46 U/L (38-126) 04/29/25 03:44
Troponin I < 0.012 ng/ml 04/29/25 03:44
Impression/Plan
-
A/P: Patient is a 69y M with PMH significant for VF/VT, ASCVD and paroxysmal A-Fib who presents to ED for evaluation s/p AICD firing this evening.
VT / VF s/p AICD Discharge
- Admit for further evaluation and treatment.
- Monitor on telemetry overnight.
- Currently symptom-free.
- Device interrogation notes 41J discharge at 1:42 AM (note that interrogation report times are all 2 hours earlier than actual EST / local time).
- Cardiology evaluation for additional recommendations / therapeutic changes.
- Continue current dose of Tikosyn for now. Continue metoprolol.
- Patient is on polypharmacy regimen including multiple stimulant agents, chronic steroids and QT prolonging medications / antidepressants which likely contribute to his arrhythmogenesis.
- Would make every effort to minimize these medications.
ASCVD
Paroxysmal A-Fib s/p Ablation
- Stable. Continue current CV med regimen.
- No A-Fib noted since ablation. No longer maintained on OAC.
Inflammatory Polyarthropathy
- ? etiology / specifics of this diagnosis.
- Maintained on chronic prednisone and sulfasalazine.
ADD
Narcolepsy
NATALIE on CPAP
- Stable at present.
- Patient notes that his daily dose of Adderall varies.
- Would attempt to minimize (or eliminate) stimulant dosing as noted above.
RLS
- Continue ropinirole.
Anxiety / Depression
- Continue current med regimen for now.
- Attempt to minimize / eliminate QT prolonging medications as able (sertraline).
DVT Prophylaxis: SCDs
Code Status: Full
[2025-04-29 06:00] VITALS: BMI 29.7
[2025-04-29 06:01] VITALS: BP 115/83
[2025-04-29 06:27] VITALS: BMI 29.7
[2025-04-29 06:36] VITALS: BP 113/69
--- NOTE | 2025-04-29 07:10 | CON.CAR ---
Addendum entered and electronically signed by Arti Hernandez MD 04/29/25 10:21:
I did speak at length with the patient regarding driving restriction. Since patient has had ICD shock on antiarrhythmic drug therapy he is now restricted and will be unable to drive. He understands the plan. He will be reassessed by
electrophysiology at upcoming visit for further recommendations regarding driving restriction. No driving until office visit when this will be further discussed.
Addendum entered and electronically signed by Arti Hernandez MD 04/29/25 09:39:
I saw and examined the patient.
The [employer]'s note was reviewed and I agree with the note.
Comment: Exam stable. Regular rate and rhythm. No murmurs. No edema. Lungs are clear.
Ventricular tachycardia/ventricular fibrillation status post ICD shock while asleep 04/29/2025. Reviewed with patient nothing different. Only changes he has not been wearing his CPAP for the past 4 to 7 days given he has lost 30 pounds on
Zepbound. Potassium is at the low end of normal and was repleted. He has had recurrent ventricular arrhythmias with prior shock 03/26/2025 and sustained ventricular tachycardia 10/02/2020. We discussed the pathophysiology of ventricular arrhythmias.
He remains on dofetilide and his EKG was without abnormality. He has chronic left short-lived rest upper chest pain which is likely muscular in nature and has not changed over the years. Labs are stable.
Have discussed with electrophysiology. Plan at this time:
- Replete electrolytes. Will send him home on 10 mEq of potassium
- Recent echo stable no need to repeat
- EKGs reviewed
- We will move up electrophysiology (Dr. Dany Hernandez appointment) to discuss ablation. This has been discussed previously.
- Device check noted and stable.
- Resume CPAP.
- Continue with good hydration.
- Ejection fraction known to be normal.
Atrial arrhythmias noted without recurrence status post prior ablations.
Original Note:
Consultation
Consultation Request
Date/Time Consultation Requested: 04/29/2025, 0616
Date/Time Consultation Performed: 04/29/2025, 0711
Requesting Provider: Dr Hudson
Performing Provider: REINIER Jackson
Reason for Consultation: ICD shock
Medical History
-
Chief Complaint: ICD shock for VF
History of Present Illness:
69-year-old man past medical history of VT/VF who presented to [place] emergency department after ICD shock. He was sleeping, having a dream, and awoke from sleep around 1:45 am feeling like he had been kicked in the chest. Symptoms similar to
prior ICD firing last month which also awoke him from sleep. He was admitted at that time 03/27/2025 - 03/29/2025 and Tikosyn dose was increased to 500 mg twice daily with stable QTc. He's had no chest discomfort, dyspnea, palpitations, presyncope
or syncope. Tells me he was in his usual state of health and has had no changes to recent medications.
Of note he is on multiple potential QT prolonging meds including Adderall and sertraline but has been on stable doses and QTc has been stable.
Interrogation of his [employer] ICD in the ER showed VF at 248 bpm status post 41 J shock. Per device episode occurred at 2342 on 04/28/2025 but device timing 2 hrs behind
EKG in ED: Normal sinus rhythm QTc 452 ms.
Labs: K3.6, mag 2.2, troponin less than 0.012 x 2, proBNP 236, TSH pending
Patient does not consume alcohol
PMHx:
Ventricular tachycardia/Ventricular fibrillation status post ICD shock
-ICD shock x 1 04/29/2025
-ICD shock x 2 03/26/2025
- ICD placed at [facility] 10/02/2020 for sustained VT
Atrial fibrillation status post ablation 11/2021 (dofetilide discontinued at this time)
Atrial tachycardia status post EP study 03/2022
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
VT 09/2020- seen at [facility] and had CV
DC ICD ([employer]) 10/02/20
Myocardial infarction 09/2020
Nonobstructive coronary artery disease
Vasovagal syncope
Sleep apnea
GERD
Diverticular disease
Anal cancer status post chemo and radiation
Bilateral shoulder surgery 2009
Cardiac contusion approximately 30 years ago
Past Medical History
Past Medical History: Other (As above)
Past Surgical History: Other (As above)
Social History
Tobacco: Non-Smoker
Personal:
Living: With Family
Family History
Family History: Reviewed & Not Pertinent
Allergies / Home Medications
Allergy/AdvReac Type Severity Reaction Status Date / Time
shrimp Allergy Unknown facial Verified 04/29/25 03:08
swelling
clindamycin Allergy Facial Verified 04/29/25 03:08
Swelling
dog dander Allergy runny nose Verified 04/29/25 03:08
modafinil (From [facility]) Allergy Pharmacy Verified 04/29/25 03:08
to Review
�Medication �Instructions �Recorded �Confirmed �Type
dextroamphetamine-amphetamine ER 20 mg PO DAILY Mental 12/03/21 04/29/25 History
20 mg 24hr capsule,extend release Health/Anxiety
(Adderall XR)
gabapentin 300 mg capsule 300 mg PO BID Pain 12/03/21 04/29/25 History
omeprazole 40 mg-sodium 1 cap PO BID Gastrointestinal Issue 12/03/21 04/29/25 History
bicarbonate 1.1 gram capsule
(Zegerid)
ropinirole 0.5 mg tablet 2 mg PO QPM Neurological Condition 12/03/21 04/29/25 History
tadalafil 5 mg tablet (Cialis) 5 mg PO QPM Urinary Issue 12/03/21 04/29/25 History
dextroamphetamine-amphetamine 10 10 mg PO BID Mental Health/Anxiety 12/11/21 04/29/25 History
mg tablet
melatonin 3 mg tablet 5 mg PO HS Sleep 04/11/22 04/29/25 History
aspirin 81 mg tablet,delayed 81 mg PO DAILY Blood Clot 03/02/24 04/29/25 History
release (Pauly Low Dose Aspirin) Prevention/Tx
bupropion HCl 150 mg tablet,12 hr 150 mg PO DAILY Mental 03/02/24 04/29/25 History
sustained-release (Wellbutrin SR) Health/Anxiety
prednisone 5 mg tablet 10 mg PO DAILY Anti-Inflammatory 03/02/24 04/29/25 History
sertraline 100 mg tablet (Zoloft) 100 mg PO DAILY Mental 03/02/24 04/29/25 History
Health/Anxiety
sulfasalazine 500 mg tablet 1 g PO BID Antirheumatic, 03/02/24 04/29/25 History
pravastatin 20 mg tablet 20 mg PO HS High Cholesterol 03/03/24 04/29/25 History
metoprolol succinate 25 mg 25 mg PO BID #60 tabs 03/05/24 04/29/25 Rx
tablet,extended release 24 hr
(Toprol XL)
metoprolol succinate 50 mg 50 mg PO BID #1 tab 03/05/24 04/29/25 Rx
tablet,extended release 24 hr
(Toprol XL)
silodosin 4 mg capsule 4 mg PO DAILY BPH 03/27/25 04/29/25 History
dofetilide 500 mcg capsule 500 mcg PO Q12 Arrhythmia #60 caps 03/28/25 04/29/25 Rx
Review of Systems
-
History Source: Patient
All other systems: Negative unless noted
Physical Exam
Vital Signs
Temp Pulse Resp BP Pulse Ox
97.6 F 82 18 113/69 95
04/29/25 06:36 04/29/25 06:45 04/29/25 06:36 04/29/25 06:36 04/29/25 06:36
Lab Results
04/29/25 03:44
04/29/25 03:44
Troponin I < 0.012 ng/ml 04/29/25 03:44
Uoq-O-Zunkwuazspx Pept 236 pg/ml 04/29/25 03:44
GEN: No distress, awake, Ox3
HEENT: supple, anicteric, mmm
LUNGS: CTA, no wheezes/rales
CV: Reg, S1/S2, 1/6 syst LSB, no murmur
ABD: soft, BS+, NT/ND
EXT: No edema
NEURO: Gross non-focal
SKIN: No rash
Impression / Plan
-
PCP: Dr. medhat Martel
Primary ballpoint pen cartridge tester: Clinton Hernandez MD
Impression:
Admitted with ventricular tachycardia/Ventricular fibrillation status post ICD shock x 2 03/26/2025
Device interrogation in ED showed VT/VF at 250 bpm
Atrial fibrillation status post ablation 11/2021 (dofetilide discontinued at this time)
Not chronically on OAC due to lack of symptomatic Afib and patient choice
Atrial tachycardia status post EP study 03/2022
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
VT 09/2020- seen at [facility] and had CV
DC ICD ([employer]) 10/02/20
Myocardial infarction 09/2020
Recurrent VT 02/2024
Tikosyn restarted during admission 02/2024
Nonobstructive coronary artery disease
Vasovagal syncope
Sleep apnea
GERD
Diverticular disease
Anal cancer status post chemo and radiation
Bilateral shoulder surgery 2009
Cardiac contusion approximately 30 years ago
Cardiac catheterization on 09/29/2020 ([facility]) showed nonobstructive coronary artery disease and an ejection fraction of 40 to 45%.
Lexiscan Cardiolite stress test on 10/09/23 showing a fixed defects in the basal inferolateral, basal inferior, mid inferior lateral, and mid inferior segment of the apex consistent with soft tissue attenuation which improved with prone imaging. EF
was 57%.
Cardiac cath 03/02/2024: No obstructive CAD, mid LAD has myocardial bridge, LVEDP 15 mmHg
Echom on 09/29/2020 ([facility]) showed an EF of 55% with no wall motion abnormalities.
ECHO 03/02/24: EF 55 to 60%, mild concentric LVH, stage II diastolic dysfunction, mild MAC, trace MR, mild TR, PAP 33 mmHg
Echo 03/29/25: EF 50-55%, normal RV size and function, no significant valve disease, dilated aortic root. Sinus of Valsalva measures 3.9 cm, sinotubular junction measures 3.4 cm. Dilated ascending aorta, measuring 4.0 cm.
Plan:
-Presented following ICD shock for VT/VF. He has history of VT resulting in ICD placement in 2020. Prior admission following ICD shock in 2023, and 02/2025 at which time Tikosyn was increased to 500 mcg q 12 hours.
-EKG: Normal sinus rhythm with QTc 542 ms, stable
-Telemetry personally reviewed: Normal sinus rhythm, no VT
-K3.6-repleted with 40 mEq KCl now�I ordered
-Mag 2.2
-Patient also with paroxysmal Afib and has been in SR this admission with no detections for AF on device check in ER last night
-Patient is not chronically on OAC due to lack of recurrent symptomatic Afib and patient prefers to monitor for recurrent Afib via smart watch.
-Outpatient dose of Toprol XL 75 mg BID has been continued
-D/C to home today
- Repeat BMP and mag in 1 week
- Has follow-up with Dr. Dany Hernandez 05/24/2025 at 10:40 AM
- There has been consideration for VT ablation in the past, further discuss at upcoming office visit.
Data Reviewed
-
EKG: Tracing Personally Visualized and interpreted
Labs: Labs Reviewed by me
Old Records: Reviewed
--- NOTE | 2025-04-29 07:15 | PTCARENOTE ---
Received pt into room 2251 from ED RN at approx 0615. Placed pt on tele, SR with HR in the 80's. pt denies any CP or SOB at this time. Admission completed and labs obtained/sent. pt oriented to room and call button. Encouraged pt to call RN with any
questions/concerns. Call braun within reach.
[2025-04-29 07:34] LABS: Troponin I < 0.012 ng/ml
--- NOTE | 2025-04-29 08:05 | W.PN.HOSP.TC ---
Today's Communication/Plan
-
Cardiology consult
Assessment / Plan
Assessment / Plan
Gen-AAOx3, NAD, obese
HEENT-NC, AT, anicteric, clear oral mm
Neck-supple
CV-reg, no M, +S1/S2
Lungs-clear B/L
Abd-soft, NT, ND
Ext-no edema
Musculoskeletal-no cyanosis, clubbing
Skin-warm and dry
Neuro-grossly non-focal
Psych-calm, cooperative
Recurrent ventricular fibrillation -ICD discharged 1:45 AM based on interrogation. Similar presentation in late February with dose adjustment of dofetilide
Suspect sleep apnea related V-fib as patient admits to stopping use of CPAP 3 nights ago. He did this in an attempt to see if he still needs it as he believes he lost about 30 pounds.
We discussed importance of maintaining CPAP use every night. Decision to discontinue should be left up to his linen room attendant. Will need outpatient sleep study reevaluation.
Patient to ask to bring in CPAP from home for tonight.
QTc noted to be normal on EKG. He is on multiple QT prolonging medications. However, no dose changes or no new meds recently.
Cardiology consulted.
History of atrial fibrillation -treated with RFA, November 2021.
History of atrial tachycardia
CAD -history of ME, September 2020.
Hyperlipidemia
NATALIE -linen room attendant is located at [facility]. Recommend outpatient sleep study reevaluation.
Narcolepsy
Unspecified inflammatory polyarthropathy -on chronic sulfasalazine, prednisone.
RLS -on ropinirole.
GERD
Diverticulosis
History of anal cancer
ADD
Anxiety/depression
BPH
Obesity due to excess calories
Full code
Anticipated Discharge: Within 24 hours
Subjective/Interval History
-
Date of Service: April 29, 2025
Patient seen and examined. No complaints.
Objective Data
-
Labs:
Laboratory Results
04/29/25
03:44
WBC 8.1
Hgb 15.0
Hct 48.5
Plt Count 148
Sodium 137
Potassium 3.6
Chloride 106
Carbon Dioxide 23
BUN 18
Creatinine 0.8
Glucose 102 H
Calcium 8.8
Total Bilirubin 0.5
AST 23
ALT 31
Alkaline Phosphatase 46
Vital Signs:
Vital Signs
Temp Pulse Resp BP Pulse Ox
97.6 F 82 18 113/69 95
04/29/25 06:36 04/29/25 06:45 04/29/25 06:36 04/29/25 06:36 04/29/25 06:36
Review of Systems
-
History Source: Patient
All other systems: Reviewed and negative
[2025-04-29] MEDS: TOPROL XL 75 MG PO (08:10)
[2025-04-29] MEDS: KCL 40 MEQ PO (08:11)
[2025-04-29] MEDS: TIKOSYN 500 MCG PO (08:12)
[2025-04-29] MEDS: FLOMAX 0.4 MG PO (08:12)
[2025-04-29] MEDS: NEURONTIN 300 MG PO (08:12)
[2025-04-29] MEDS: ASPIR LOW (ENTERIC COATED) 81 MG PO (08:12)
[2025-04-29] MEDS: DELTASONE 10 MG PO (08:18)
[2025-04-29] MEDS: ZOLOFT 100 MG PO (08:18)
[2025-04-29] MEDS: AZULFIDINE 500 MG PO (08:18)
[2025-04-29] MEDS: WELLBUTRIN XL (24 hour extended release) 150 MG PO (08:18)
[2025-04-29] MEDS: ADDERALL 10 MG PO (08:28)
--- NOTE | 2025-04-29 08:42 | PTCARENOTE ---
Pt states he feels okay this morning, just 'tired'. Ambulating in room, no ectopy noted on night monitor.
--- NOTE | 2025-04-29 10:31 | CM ---
Reviewed chart. Met with Mr. Stephen to review discharge plans. He states prior to admission he resides with his spouse in a three story home with three steps to enter. He states he has a full flight of steps to get to bedroom/full bathroom. He
states he has a powder room on the first floor. He states prior to admission he was independent with ambulation and adls. He states he has a CPAP Machine at home. He states he has a prescription plan and uses [facility]. Medial work-up
in progress. The discharge plan is to return home with his spouse when medically stable.
--- NOTE | 2025-04-29 11:39 | W.DS.TRANS ---
DC Summary - Rn Progressive Care
-
Discharge Instructions:
Discharge Diagnosis/Procedures Ventricular fibrillation
Diet Low Fat,Low Cholesterol
Activity As tolerated
Driving Restrictions No driving
Bathing Restrictions None
Blood Work BMP and magnesium one week after discharge. Lab
slip provided.
Instructions:
Stand-Alone Forms:
Changes to Home Medications: No
Discharge Medications:
DC Medications w/original date entered in [employer]
dextroamphetamine-amphetamine ER 20 mg 24hr capsule,extend release (Adderall XR) 20 mg PO DAILY Mental Health/Anxiety 12/03/21
gabapentin 300 mg capsule 300 mg PO BID Pain 12/03/21
omeprazole 40 mg-sodium bicarbonate 1.1 gram capsule (Zegerid) 1 cap PO BID Gastrointestinal Issue 12/03/21
ropinirole 0.5 mg tablet 2 mg PO QPM Neurological Condition 12/03/21
tadalafil 5 mg tablet (Cialis) 5 mg PO QPM Urinary Issue 12/03/21
dextroamphetamine-amphetamine 10 mg tablet 10 mg PO BID Mental Health/Anxiety 12/11/21
melatonin 3 mg tablet 5 mg PO HS Sleep 04/11/22
aspirin 81 mg tablet,delayed release (Pauly Low Dose Aspirin) 81 mg PO DAILY Blood Clot Prevention/Tx 03/02/24
bupropion HCl 150 mg tablet,12 hr sustained-release (Wellbutrin SR) 150 mg PO DAILY Mental Health/Anxiety 03/02/24
prednisone 5 mg tablet 10 mg PO DAILY Anti-Inflammatory 03/02/24
sertraline 100 mg tablet (Zoloft) 100 mg PO DAILY Mental Health/Anxiety 03/02/24
sulfasalazine 500 mg tablet 1 g PO BID Antirheumatic, 03/02/24
pravastatin 20 mg tablet 20 mg PO HS High Cholesterol 03/03/24
metoprolol succinate 25 mg tablet,extended release 24 hr (Toprol XL) 25 mg PO BID #60 tabs 03/05/24
metoprolol succinate 50 mg tablet,extended release 24 hr (Toprol XL) 50 mg PO BID #1 tab 03/05/24
silodosin 4 mg capsule 4 mg PO DAILY BPH 03/27/25
dofetilide 500 mcg capsule 500 mcg PO Q12 Arrhythmia #60 caps 03/28/25
potassium chloride 10 mEq tablet,extended release(part/cryst) 10 meq PO DAILY #10 tabs 04/29/25
Home Medication Changes
Pending Results: No
[2025-04-29 12:59] LABS: Troponin I < 0.012 ng/ml
== END 2025-04-29 13:14 | disposition home or self-care (01) | DRG 310 ==
LOC: IVU 05:25
PROVIDERS: ADMITTING PHYSICIAN Hospitalist; ATTENDING PHYSICIAN Hospitalist; CONSULT PHYSICIAN Internal Medicine Cardiovascular Disease; EMERGENCY PHYSICIAN Student in an Organized Health Care Education/Training Program; FAMILY PHYSICIAN Internal Medicine
PROC: 4B02XTZ Measurement of Cardiac Defibrillator, External Approach (ICD-10-PCS; 2025-04-29)
DX: I49.01 Ventricular fibrillation (principal); I47.19 Other supraventricular tachycardia; I25.10 Atherosclerotic heart disease of native coronary artery without angina pectoris; G47.33 Obstructive sleep apnea (adult) (pediatric); I48.0 Paroxysmal atrial fibrillation; Z95.810 Presence of automatic (implantable) cardiac defibrillator; I25.2 Old myocardial infarction; G47.419 Narcolepsy without cataplexy; K21.9 Gastro-esophageal reflux disease without esophagitis; Z92.21 Personal history of antineoplastic chemotherapy; Z92.3 Personal history of irradiation; Z85.048 Personal history of other malignant neoplasm of rectum, rectosigmoid junction, and anus; M06.4 Inflammatory polyarthropathy; F32.A Depression, unspecified; F41.9 Anxiety disorder, unspecified; N40.0 Benign prostatic hyperplasia without lower urinary tract symptoms; Z88.1 Allergy status to other antibiotic agents; Z79.82 Long term (current) use of aspirin; E78.00 Pure hypercholesterolemia, unspecified; G25.81 Restless legs syndrome; E66.09 Other obesity due to excess calories; Z68.29 Body mass index [BMI] 29.0-29.9, adult; Z79.52 Long term (current) use of systemic steroids; Z79.899 Other long term (current) drug therapy; Z86.79 Personal history of other diseases of the circulatory system
CPT/HCPCS: 71046; 80053; 83735; 83880; 84439; 84443; 84484; 85025; 93005; 93289; 94760; 99285